=== PATIENT | female | born 1955 | race Caucasian/White ===

== ENCOUNTER 2017-06-05 10:39 | Outpatient (CLI) | payer BC ==
--- OUTSIDE RECORDS SUMMARY | 2017-06-05 12:16 | XMS | Clinical Summary ---
:1955 Author Organization [facility] Address [address] [place] [address] Phone Care Team Providers Name Role Phone , Primary Care Provider Unavailable Allergies Not on File Current Medications Not on file Active Problems Not on file Social History Tobacco Use Types Packs/Day Years Used Date Never Assessed Sex Assigned at Date Recorded Not on file Last Filed Vital Signs Not on file Plan of Treatment Not on file Results Not on filefrom Last 3 Months
--- NOTE | 2017-06-05 15:13 | MMO ---
[facility] SCREENING MAMMOGRAM: Date: 06/05/17 INDICATION: Annual exam. COMPARISON: Prior exam dated 09/04/15 and 07/18/14. FINDINGS: Interpretation of this exam was assisted with computer-aided detection. The breast parenchyma is heterogeneously dense, which limits the sensitivity of mammography. There ar e vascular appearing calcifications bilaterally. No new suspicious mass, cluster of microcalcificatio ns, or area of architectural distortion is evident. IMPRESSION: BIRADS 2: Benign Finding(s) Recommend routine annual mammographic screening. POS: JONATHAN
== END 2017-06-05 10:40 | disposition home or self-care (01) ==
LOC: MAMMO 10:39
PROVIDERS: ATTEND Family Medicine
DX: Z12.31 Encounter for screening mammogram for malignant neoplasm of breast (principal)
CPT/HCPCS: 77067; G0202

== ENCOUNTER 2017-11-16 12:53 | Outpatient (CLI) | payer BC ==
[~2017-11-16 12:53] MED LIST: Gadobenate Dimeglumine 529 MG/1 ML (20ML VIAL) ONE
== END 2017-11-16 12:54 | disposition home or self-care (01) ==
LOC: BICMRI 12:53
PROVIDERS: ATTEND Legal Medicine
DX: K83.0 Cholangitis (principal); K74.60 Unspecified cirrhosis of liver; D37.6 Neoplasm of uncertain behavior of liver, gallbladder and bile ducts
CPT/HCPCS: 74183; A9579

== ENCOUNTER 2017-12-07 13:57 | Inpatient (IN) | payer BC ==
[2017-12-07] MEDS ORDERED: Pantoprazole 40 MG VIAL ONE (14:35)
[2017-12-07 14:36] LABS: #Basophils 0.1 thou/uL (0.0-0.2); #Eosinphils 0.5 thou/uL (0.0-0.7); #Lymphocytes 1.3 thou/uL (1.20-3.40); #Monocytes 0.5 thou/uL (0.11-0.59); #Neutrophils 4.2 thou/uL (1.40-6.50); %Basophils 1.3 % (0.0-1.0); %Eosinophils 8.1 % (0.0-10.0); %Lymphocytes 20.3 % (21.0-51.0); %Monocytes 6.9 % (0.0-10.0); %Neutrophils 63.4 % (42.0-75.0); Hemoglobin 11.4 g/dL (12.0-16.0); Mean Corpuscular HGB CONC 33.2 g/dL (32.0-36.0); Mean Corpuscular Hemoglobin 31.2 pg (27.0-31.0); Mean Corpuscular Volume 94.2 fl (81.0-99.0); Mean Platelet Volume 8.3 fL (7.4-10.4); Platelet Count 175 thou/uL (130-400); RBC Distribution Width 14.2 % (11.5-14.5); Red Blood Cell (RBC) Count 3.65 mill/uL (4.20-5.40); White Blood Cell (WBC) Count 6.5 thou/uL (4.8-10.8)
[2017-12-07 14:44] LABS: INR-International Normal Ratio 1.3; PTT 35.8 SEC (22.9-36.1); Prothrombin Time 16.8 SEC (12.0-14.7)
[2017-12-07 14:59] LABS: ALT (SGPT) 25 U/L (8-55); AST (SGOT) 42 U/L (5-34); Albumin 2.4 g/dL (3.5-5.0); Alkaline Phosphatase 170 U/L (40-150); Anion Gap 11 mmol/L (10-20); BUN (Urea Nitrogen) 8 mg/dL (9.8-20.1); Bilirubin, Total 1.6 mg/dL (0.2-1.2); Calc. Creatinine Clearance 0 mL/min (70-130); Calcium 7.7 mg/dL (7.8-10.44); Carbon Dioxide 23 mmol/L (22-29); Chloride 103 mmol/L (98-107); Estimated GFR-MDRD 83; Globulin 2.7 g/dL (2.4-3.5); Glucose 195 mg/dL (70-105); Potassium 3.8 mmol/L (3.5-5.1); Protein, Total 5.1 g/dL (6.0-8.3); Sodium 133 mmol/L (136-145)
[2017-12-07] MEDS ORDERED: Sodium Chloride 0.9% 1,000 ML IV SCH (16:30)
[2017-12-07] MEDS ORDERED: Lidocaine 1% w/Epinephrine 1:100K 20 ML VIAL ONE (16:34)
[2017-12-07] MEDS ORDERED: Lidocaine 2% PF 100 mg/5 ml Syringe ONE (16:34)
[2017-12-07] MEDS ORDERED: Ondansetron ODT 4 MG TAB ONE (18:11)
--- NOTE | 2017-12-07 18:18 | HP ---
DATE OF ADMISSION: 12/07/2017 PRIMARY CARE PHYSICIAN: Lopez Nichole D.O. PRIMARY COLON SURGEON: Dr. Mcgee in [place]. PRIMARY LOCAL LIVER DOCTOR: Grady Wall M.D. TIME OF SERVICE: 1600. CHIEF COMPLAINT: GI bleed and syncope. HISTORY OF PRESENT ILLNESS: Ms. Mcclelland is a pleasant 61-year-old female with a history of ulcera tive colitis, status post subtotal colectomy 04/2017, approximately 16, who has had her ostomy bag. She was in normal state of health until this morning. This morning, she notes she had a few clots in her bag, but otherwise felt fine. She went to [employer] for food and while there had to go magaly k to the bathroom to empty her ostomy bag and noticed it was mostly medium red blood. When she got u p from the toilet, she syncopized and fell and struck the toilet and was subsequently brought to the emergency department for evaluation. Per reports, blood pressure was in the 90 systolic on arrival, but at one point it dropped to 82 syst olic. She was given 1 liter of IV fluid and 40 mg of IV Protonix. Blood pressure normalized in the low 100-118. Hemoglobin was normal on initial check and we were subsequently called for admission fo r GI bleed workup. On my arrival to the Emergency Department, she had filled up her ostomy bag with bloody again. The b ag was starting to lose its hold and they were in the process of removing it. Subsequently, her bloo d pressure dropped again to the 80s systolic. I recommended type and cross for 2 units and another 2 liter bolus of fluids. I placed orders for admission to the CCU. During that time or placing orders, the patient's ostomy bag was removed for cleaning. She was noted to have a pinpoint bleed spurting out from the left lateral aspect of her ostomy site. Pressure did seem to control initially, but did not stop it. Dr. Benjamin from General Surgery was initially consu lted, who recommended putting a suture through it and the ER resident placed TXA and bleeding is curr ently stopped. On my return to check on the patient's blood pressures in the 60 systolic. The two u nits of blood were ordered to be given stat and 2 additional liters of fluid. Dr. Quiñonez from [facility] was notified. Dr. Stephen Mcgee senior radiation therapist for Gastroenterology for Dr. Wall's tea m has been called. I left a message with him to call me back. The patient is otherwise currently st able. Denies any chest pain, difficulty breathing or nausea or vomiting. In passing, the mentioned that she has some liver disease that she was in high school as she was referred to a liver specialist in [place], whose name I cannot recall, currently stated that she has the liver and advanced alcoholic, though she does not drink a drop. INR on ER presentation was 1 .3 with elevated PT but normal PTT. PAST MEDICAL HISTORY: 1. Ulcerative colitis. 2. Iron deficiency anemia. 3. Chronic liver disease. PAST SURGICAL HISTORY: Include; 1. Large bowel resection and colostomy creation. 2. x3, remotely. 3. Hysterectomy. HOME MEDICATIONS: 1. Ursodiol 500 mg p.o. t.i.d. 2. Xifaxan 550 mg p.o. b.i.d. 3. Vitamin A daily. ALLERGIES: NKDA. FAMILY HISTORY: Negative for clotting or bleeding disorder. No immune dysfunction. SOCIAL HISTORY: Negative for habits x3. She is . Her daughter is a nurse tech here locally. REVIEW OF SYSTEMS: A 10-point review of systems was performed. All systems reviewed were negative f or all systems except as stated as per HPI. PHYSICAL EXAMINATION: VITAL SIGNS: Temperature 97.7, pulse 78, blood pressure initially 96/72 did drop to 82/51 and upon m y second return to the ER was 60s/40s. Respiratory rate 18, 100% on room air. GENERAL: She is awake. She is alert. She is oriented x3. She is a well-developed, well-nourished, white female, appears to be in no acute distress. HEENT: Normocephalic, atraumatic. Pupils equal, round, react to light bilaterally, she has left lat eral strabismus. She also has xanthelasma present. Mucous membranes are moist. She has no visible lesions or thrush. NECK: Supple, without lymphadenopathy, JVD, or thyromegaly. No carotid upstrokes without bruits. LUNGS: Clear. No wheezes, no rales or rhonchi. Good air movement and symmetrical chest excursion. CARDIOVASCULAR: Normal S1, S2. She is not tachycardic. She is regular. No audible murmurs. ABDOMEN: Soft. It is nontender. She has an ostomy present in the right lower quadrant. It is not extruded like normal ostomy, but is a rather flush currently. She has maceration around the junction site. Initially, there was a pinpoint continuous flows spurting bleed with a continuous flow from t he left lateral edge of her ostomy. After TXA, it was not able to be identified where it was coming from. EXTREMITIES: Shows no cyanosis, no clubbing with trace pedal edema. SKIN: Pale and cool. Capillary refill about 3 seconds. MUSCULOSKELETAL: Normal to inspection. Large joints appear normal. There is no active inflammation . Normal range of motion. No palpable effusions. NEUROLOGIC: Cranial nerves II-XII are grossly intact other than her strabismus. She has no focal ne urologic deficits, normal speech pattern. 5/5 strength in all 4 extremities. LABORATORY DATA: Sodium 133, potassium 3.8, chloride 103, bicarbonate 23, BUN 8, creatinine 0.72, gl ucose 195, and calcium of 9.7. Total bilirubin slightly elevated at 1.6, total protein low at 5.1, a lbumin low 2.4, alkaline phosphatase slightly elevated at 170, AST barely elevated at 42, ALT was nor mal. CBC showed a white count of 6.5, hemoglobin 11.4, hematocrit of 34.4, and platelet count is 195. INR is 1.3 with PTT of 16. Normal PTT. ASSESSMENT AND PLAN: 1. Acute lower gastrointestinal bleed. This may all be from her ostomy site, however, cannot rule o ut a bowel bleed. I have asked Dr. Stephen Mcgee with Gastroenterology to evaluate the patient and f roberto along. 2. Ostomy bleed: Place consult for General Surgery. If she ended up having a rebleed, she may need a revision of her ostomy site. I am fairly confident at this point she has lost at least 2 units of blood. I will continue to monitor closely. We will recheck her H and H after she gets some blood i n more fluids. 3. Suspected acute blood loss anemia present on admission: Patient syncopized prior to arrival befo re any fluids were given. Hemoglobin was 11. She has known iron deficiency anemia anyways. We will monitor H and H closely. 4. Ulcerative colitis, status post colectomy as above. 5. Chronic liver disease, unknown type: We will have Dr. Mcgee comment on that to use Xifaxan when she is able to take oral. We will admit the patient to the CCU overnight. Aggressive IV fluids and blood product administratio n. We will hold off on FFP now as her PTT is a barely elevated. INR is normal. If GI feels strongl y about giving it, and certainly we will get it ordered.
[2017-12-07] MEDS ORDERED: Ondansetron HCl/PF 4 MG/2 ML Vial IVP PRN ×2 (18:51→19:30)
[2017-12-07] MEDS ORDERED: Acetaminophen 325 MG TAB PO PRN ×2 (18:51→19:30)
[2017-12-07] MEDS ORDERED: Ondansetron ODT 4 MG TAB SL PRN (18:51)
[2017-12-07] MEDS ORDERED: Ondansetron ODT 4 MG TAB PO PRN (19:30)
[2017-12-07] MEDS: Sodium Chloride 0.9% 1,000 ML IV SCH (19:46)
[2017-12-07 20:00] LABS: Hemoglobin 11.3 g/dL (12.0-16.0)
[2017-12-07 20:33] VITALS: BP 104/61
[2017-12-07 20:56] VITALS: BMI 29.9
[2017-12-07] MEDS ORDERED: Famotidine/PF 20 mg/2ml Vial SLOW IVP SCH (21:00)
--- NOTE | 2017-12-07 21:52 | CON ---
DATE OF CONSULTATION: 12/08/2017 SERVICE: Pulmonary Medicine. REASON FOR CONSULTATION: Hemorrhagic shock. HISTORY OF PRESENT ILLNESS: Patient is a 61-year-old white female with past medical history significant for ulcerative colitis, status post colectomy. She has an ileostomy in place. She is in her usual state of health until this morning when she started having bright red blood in her ostomy bag. She does not remember exactly how many times she had to change it. She continued to empty it over and over again. Ultimately, she was feeling lousy but had plans to go to [facility]. At [facility], she was in her usual state of health when she started feeling lousy and went to the bathroom. She had a syncopal event there. She was subsequently brought to the emergency department. Her ostomy filled up over and over again with multiple bags full of blood. Ultimately, the bag was removed and a profusely hemorrhaging lesion was identified at the opening of the ostomy. Medication was placed there and pressure was held. The bleeding seems to have stopped for the time being, but the patient has lost a significant amount of blood. Blood pressures are marginal. She does not currently have any lightheadedness. She got a liter of fluid, and was also given a unit of blood so far. This is uncrossed matched blood. She will be getting another unit of blood here soon enough. She currently denies any current fevers, chills, nausea, vomiting, chest discomfort , or palpitations and is starting to feel a little bit better. She is already asking about whether or not she can go home. That being said by description, she has lost a significant amount of blood. PAST MEDICAL HISTORY: 1. Ulcerative colitis. 2. Rhinitis. PAST SURGICAL HISTORY: 1. Total colectomy with ileostomy formation. 2. Hysterectomy. 3. Left carpal tunnel surgery. 4. Right carpal tunnel surgery. FAMILY HISTORY: Noncontributory. SOCIAL HISTORY: Negative for tobacco, significant alcohol use, or illicit drug use. She has no exposure to chemicals, dust asbestos, or tuberculosis. ALLERGIES: No known drug allergies. MEDICATIONS: List of her inpatient medications were reviewed. No specific updates were made at this time. REVIEW OF SYSTEMS: General, head, ears, eyes, nose, throat, cardiovascular, respiratory, GI, , musculoskeletal, neurologic, and skin is negative except as mentioned in the HPI. PHYSICAL EXAMINATION: VITAL SIGNS: Afebrile, pulse 97, respirations 14, saturation 98% on room air. Blood pressure 96/55. HEENT: Normocephalic, atraumatic. Sclerae white. Conjunctivae pink. Oral nasal mucosa is moist without lesions. LUNGS: Excellent air entry. There is no prolonged expiratory phase, wheezing, rhonchi, or crackles. HEART: Normal rate, regular. ABDOMEN: Soft, nontender, nondistended. Bowel sounds are positive. MUSCULOSKELETAL: No cyanosis or clubbing. No pitting in the bilateral lower extremities. NEUROLOGIC: Grossly nonfocal. LABORATORY DATA: WBC 6.5, hemoglobin 11.4, platelets 175,000. INR 1.3. Basic metabolic profile is unremarkable. Calcium 7.7. AST 42, ALT 25, alkaline phosphatase 170. Liver function studies are otherwise unremarkable. ASSESSMENT: 1. Hemorrhagic shock. 2. Acute blood loss anemia. 3. Syncope secondary to blood loss. 4. Lower gastrointestinal bleed. 5. Ulcerative colitis. PLAN: At this point, the patient will need to be watched very closely. She had significant amount of blood loss, I am not certain how much blood she is going to need moving forward. She will certainly need hemoglobins q.6 hours. We will try to transfuse her to keep her above 7. If she has recurrent hemorrhagic shock; however, goal will not be a hemoglobin of 7, but rather hemodynamic stability. Agree with a liter of fluid that she has already received. She has got 1 unit of blood and one more is pending. After this, we will get her first hemoglobin assuming she continues not bleeding. I agree with watching the patient closely in the ICU. Pulmonary will continue to follow along for the time being. 70 minutes have been devoted to this patient in various activities. I personally reviewed all imaging studies and laboratory data noted within this document. For fifty percent of this time, I was interacting with the patient at the bedside or coordinating care with the care team. For the remainder of the time I was immediately available to the patient in the hospital unit. KOFI
--- NOTE | 2017-12-07 22:19 | CON ---
DATE OF CONSULTATION: 12/07/2017 CHIEF COMPLAINT: Blood from the ostomy. HISTORY OF PRESENT ILLNESS: Ms. Mcclelland is a 61-year-old woman with a history of ulcerative colit is and primary sclerosing cholangitis with cirrhosis who underwent colectomy previously after she was found to have biopsies with high-grade dysplasia on surveillance biopsies from her colon by Dr. Deepthi diaz. She has had an ileostomy since that time. J pouch has been on hold in light of her cirrhosis. She has also been followed by Hepatology in [place]. Today she around 10:00 this morning, she notice d red liquidy blood filling of her ostomy bag. She had this occur a few times. She went to [employer] and ate lunch. In the bathroom at the [employer], she went to empty her ileostomy bag, bu t while she is in the bathroom she passed out and fell to the floor. When she woke up, there is a gr oup of people around her. She passed. She had empty to her ileostomy bag at least 4 times after we filled up with blood. When the ileostomy bag was taken off, She saw spurting arterial type of bleedi ng from the junction between the skin and the colonic mucosa at the ileostomy site. The stool from t he ileostomy was actually yellow. She was somewhat hypotensive in the emergency room with blood pres sure in the 80s and she received fluid bolus and she is symptomatically improved after that. She has had no nausea or vomiting. She does report intermittent episodes of epigastric aching pain that rad iates through to her back. She had this for a couple of hours on Monday. She gets this pain recurre ntly every couple of weeks or so. She has had no bloody effluent from the ileostomy prior to this. She has had no change in the amount of stool output. She mostly has mushy to formed stools from the ileostomy. She states that Dr. Walker had started her on lactulose, but she did not get that pre scription filled. PAST MEDICAL HISTORY: 1. Ulcerative colitis, status post colectomy due to high-grade dysplasia on surveillance biopsies. 2. Primary sclerosing cholangitis with cirrhosis. 3. Hepatic encephalopathy. 4. Esophageal varices. The last EGD was 04/2016 that showed grade 2 varices in the lower esophagus without red signs. 5. She has a history of cholelithiasis. Her last MRI of the liver for hepatoma screening was in 2016, which did show evidence of gallstones. PAST SURGICAL HISTORY: Colectomy, colonoscopy, hysterectomy, carpal tunnel surgery. FAMILY HISTORY: Negative for GI malignancy or inflammatory bowel disease. SOCIAL HISTORY: No alcohol, tobacco, or drugs. ALLERGIES: No known drug allergies. MEDICATIONS AT HOME: Nadolol 20 mg daily, Irene Forte 500 mg 3 times a day, Xifaxan 550 mg twice zayda y, vitamin A, iron. REVIEW OF SYSTEMS: Negative x10 systems reviewed except as stated in the history of present illness. PHYSICAL EXAMINATION: GENERAL: She is in no acute distress. She is alert and oriented x3. HEENT: Eyes have no scleral icterus. NEUROLOGICAL: There is no asterixis. OROPHARYNX: Clear without lesions. NECK: No cervical or supraclavicular lymphadenopathy. LUNGS: Clear to auscultation bilaterally. HEART: Regular rate and rhythm. ABDOMEN: Soft and nontender, nondistended. Bowel sounds are present. She has ileostomy in the righ t upper quadrant. Digital exam of this reveals no melena or red blood in the ostomy. She is passing clear yellow bilious effluent from the ostomy. There is no evidence of active bleeding now. EXTREMITIES: No lower extremity edema. LABORATORY DATA: White blood cell count 6.5, hemoglobin of 11.4. She had a hemoglobin back in , which was 12.5, platelets 175. INR 1.3, creatinine 0.72. Bilirubin 1.6, AST 42, ALT 25, alkali ne phosphatase 170, albumin 2.4. IMPRESSION: 1. Acute bleed from the ileostomy site. Her family describes arterial type spurting bleeding from t he junction of the skin and the ileal mucosa at the ileostomy. The effluent from the ileostomy is a clear-yellow bilious and therefore, there is no bleeding proximal to this site. The bleeding is all around the ostomy site and has been evaluated by Dr. Benjamin. He has recommended evaluation by the [facility] wound care nurse. 2. History of cirrhosis secondary to primary sclerosing cholangitis. 3. History of ulcerative colitis, status post total colectomy and ileostomy. 4. History of esophageal varices grade 2 without red signs. 5. History of mild hepatic encephalopathy. 6. History of mild ascites noted by previous MRI from a year ago. 7. Cholelithiasis with intermittent epigastric pain that radiates to her back. 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 She is at risk for decomp ensation of her liver disease with any abdominal surgery. We will continue to follow this clinically for now and discuss with Hepatology as well. RECOMMENDATIONS: 1. She will be evaluated by the ostomy nurse/wound care nurse. 2. Check alpha-fetoprotein. 3. No further GI. Acute intervention is required at this time. I will sign off for now. Please ca ll if GI can be of assistance.
[2017-12-08] MEDS: Sodium Chloride 0.9% 1,000 ML IV SCH ×2 (00:47→05:36)
[2017-12-08 04:52] LABS: Anion Gap 6 mmol/L (10-20); BUN (Urea Nitrogen) 7 mg/dL (9.8-20.1); Calc. Creatinine Clearance 148 mL/min (70-130); Calcium 7.3 mg/dL (7.8-10.44); Carbon Dioxide 20 mmol/L (22-29); Chloride 115 mmol/L (98-107); Estimated GFR-MDRD Greater than 90; Glucose 89 mg/dL (70-105); Magnesium 1.4 mg/dL (1.6-2.6); Sodium 137 mmol/L (136-145)
[2017-12-08 05:08] LABS: #Basophils 0.1 thou/uL (0.0-0.2); #Eosinphils 0.5 thou/uL (0.0-0.7); #Lymphocytes 1.6 thou/uL (1.20-3.40); #Monocytes 0.5 thou/uL (0.11-0.59); #Neutrophils 3.1 thou/uL (1.40-6.50); %Eosinophils 9.3 % (0.0-10.0); %Lymphocytes 27.7 % (21.0-51.0); %Monocytes 8.6 % (0.0-10.0); %Neutrophils 53.4 % (42.0-75.0); Hemoglobin 10.5 g/dL (12.0-16.0); Mean Corpuscular HGB CONC 34.3 g/dL (32.0-36.0); Mean Corpuscular Hemoglobin 31.2 pg (27.0-31.0); Mean Corpuscular Volume 90.8 fl (81.0-99.0); Mean Platelet Volume 7.6 fL (7.4-10.4); PLT Morphology Comment Appears Decreased; Platelet Count 105 thou/uL (130-400); RBC Distribution Width 14.2 % (11.5-14.5); Red Blood Cell (RBC) Count 3.36 mill/uL (4.20-5.40); White Blood Cell (WBC) Count 5.7 thou/uL (4.8-10.8)
[2017-12-08] MEDS ORDERED: Famotidine 40 MG/4 ML VIAL SLOW IVP SCH (09:00)
[2017-12-08] MEDS ORDERED: Magnesium 2 GM/NS 0.9% 100 ML 2 GM in Premix Bag 1 BAG IVPB SCH (09:15)
[2017-12-08] MEDS ORDERED: Sodium Chloride 0.9% 1,000 ML IV SCH (09:15)
--- NOTE | 2017-12-08 10:39 | PRG ---
DATE OF SERVICE: 12/08/2017 SERVICE: Pulmonary Medicine INTERVAL HISTORY: The patient did fantastic overnight. She did not have any additional episodes of bleeding, but then when she got up to use the bathroom, she started oozing blood once again from the same spot. She denies any current fevers or chills. There has been no interval change to her condit ion. She has not been exsanguinating as she did previously. That being said, I think that close obs ervation in ICU is warranted given her history. PHYSICAL EXAMINATION: VITAL SIGNS: Afebrile, pulse 82, blood pressure 110/75, respirations 18, saturation 95% on room air. GENERAL: The patient is awake, alert, in no apparent distress. LUNGS: Excellent air entry. There is no prolonged expiratory phase, wheezing, rhonchi or crackles. HEART: Normal rate, regular. ABDOMEN: Soft, nontender, nondistended. Bowel sounds are positive. MUSCULOSKELETAL: No cyanosis or clubbing. There is no pitting in the bilateral lower extremities. NEUROLOGIC: Grossly nonfocal. LABORATORY DATA: Hemoglobin has settled down to 10.5. CBC is otherwise unremarkable. Her platelet count 105,000, which is dropping gently. INR 1.3. Chloride 115, bicarbonate 20, anion gap 6. Creat inine 0.51 and normal. Magnesium is 1.4. ASSESSMENT: 1. Hemorrhagic shock, resolved. 2. Acute blood loss anemia. 3. Syncope secondary to blood loss. 4. Lower gastrointestinal bleed at the ostomy site. 5. Ulcerative colitis. 6. Hypomagnesemia. DISCUSSION AND PLAN: I will provide the patient with magnesium. We will once again applied TXA to t he external site of the lesion as this previously was quite effective at controlling her bleeding. S he will remain in the ICU for the time being. We will have Wound Care come by and give her some osto my teaching. She will remain in the ICU for closer observation, given her recent history.
--- NOTE | 2017-12-08 12:36 | HP ---
Sheldon Mcclelland is a 61-year-old female referred by [facility], I believe, Dr Geovanna Wall to [place] for a colectomy secondary to polyposis and dysplasia. The patient hopes to have a J-pouch in the future. She has an ileostomy. The patient yesterday was shopping, experience d bleeding in her colostomy bag, became weak, presented to the emergency room, blood pressure in the 70s. Her ileostomy appliance removed and she had dermatitis secondary to ileostomy effluent and ther e was bleeding at the skin site adjacent to the ileostomy. Apparently, the patient was in the emerge ncy room under the care of the emergency room physician and admitted to the medical service and not h aving yet left to the emergency room. The patient had ongoing bleeding and the resident working in [facility] emergency room was called. I was consulted, but to tend to this, but I was not immediately availa ble. I asked the nurse to get the emergency room doctor there and in the emergency room, tend to the bleeding, put a stitch prior if necessary. By the time I arrived, the bleeding had ceased. The pat ient had mild dermatitis secondary to poor ileostomy care. The patient had not been educated on ileo stomy care when she left [place]. She had not been using protective skin barriers for the alkaline i leostomy effluent. There was no more bleeding. She did receive a unit of blood and her hemoglobin w as 11 on the blood check. I then told her that she would need to be educated by stoma therapist. Marlon presley had spoken to Maura Karthik over the phone but not yet physically visited her. The patient has stoma paste, but did not know how to use it. She has a powder, but does not know how to use it. She has protective barriers but does not know how to use it. She has been admitted by the medical service. The patient was observed in the ICU. She remained hemodynamically stable. This morning, her hemoglo bin is 10. This morning she had bleeding again, I was called. By the time I saw her, the bleeding s topped and they could not identify exactly where the bleeding was occurring around the colostomy edge . At this point, we have ordered a stoma therapy to see her and teach her ileostomy care. Dr. Yolanda diaz is covering the weekend. Please call if necessary. No further treatment is necessary at this yashira e. The patient hopes to have a J-pouch to reverse her ileostomy in the future in [place].
[2017-12-09 06:13] LABS: Anion Gap 7 mmol/L (10-20); BUN (Urea Nitrogen) 10 mg/dL (9.8-20.1); Calc. Creatinine Clearance 133 mL/min (70-130); Calcium 7.5 mg/dL (7.8-10.44); Carbon Dioxide 21 mmol/L (22-29); Chloride 111 mmol/L (98-107); Estimated GFR-MDRD Greater than 90; Glucose 88 mg/dL (70-105); Magnesium 1.8 mg/dL (1.6-2.6); Potassium 4.1 mmol/L (3.5-5.1); Sodium 135 mmol/L (136-145)
[2017-12-09 06:17] LABS: #Eosinphils 0.6 thou/uL (0.0-0.7); #Lymphocytes 1.1 thou/uL (1.20-3.40); #Monocytes 0.5 thou/uL (0.11-0.59); #Neutrophils 3.3 thou/uL (1.40-6.50); %Basophils 0.8 % (0.0-1.0); %Eosinophils 11.1 % (0.0-10.0); %Lymphocytes 20.4 % (21.0-51.0); %Monocytes 9.3 % (0.0-10.0); %Neutrophils 58.5 % (42.0-75.0); Hemoglobin 10.5 g/dL (12.0-16.0); Mean Corpuscular HGB CONC 33.9 g/dL (32.0-36.0); Mean Corpuscular Volume 91.5 fl (81.0-99.0); Platelet Count 107 thou/uL (130-400); RBC Distribution Width 14.4 % (11.5-14.5); White Blood Cell (WBC) Count 5.6 thou/uL (4.8-10.8)
[2017-12-09 08:34] VITALS: TEMP 98.1
[2017-12-09] MEDS ORDERED: Pantoprazole 40 MG GRANULES PACKET PO SCH (09:00)
--- NOTE | 2017-12-09 12:43 | PDOC.PN ---
- Subjective Encounter Start Date: 12/08/17 Encounter Start Time: 09:30 Pt did well overnigh,t no further bleeding, Hgb down 1.0 from our ER, after units PRBCs, total down of about 3 units. pt then stood up to go tot restroom afte ri left and started to rebleed. TXA to site, transfer to floor held, WCare to see regarding ostomy care No F/c, no N/V/D/C, no intraluminal bleed, all from stoma site All systems reviewed and neg x as above - Objective Resuscitation Status: Resuscitation Status FULL:Full Resuscitation MAR Reviewed: Yes Vital Signs & Weight: Vital Signs (12 hours) Temp Pulse Resp Pulse Ox 12/09/17 08:00 98.1 F 83 14 96 12/09/17 07:14 97 12/09/17 04:00 98.3 F Weight Admit Weight 174 lb Weight 174 lb 6.17 oz Most Recent Monitor Data Heart Rate from ECG 92 NIBP 133/85 NIBP BP-Mean 95 Respiration from ECG 16 SpO2 98 I&O: 12/08/17 12/09/17 12/10/17 06:59 06:59 06:59 Intake Total 2272 1080 Output Total 1550 2050 250 Balance 852 -320 250 Result Diagrams: 12/09/17 05:14 12/09/17 05:14 EKG Reviewed by me: Yes Phys Exam - Physical Examination Constitutional: NAD HEENT: PERRLA, moist MMs, sclera anicteric, oral pharynx no lesions Neck: no nodes, no JVD, supple, full ROM Respiratory: no wheezing, no rales, no rhonchi, clear to auscultation bilateral Cardiovascular: RRR, no significant murmur, no rub Gastrointestinal: soft, non-tender, no distention, positive bowel sounds parastoma lregion look better. applinace removed after rebleed, site c/d/i no spurting bleed like DOA Musculoskeletal: pulses present, edema present Neurological: non-focal, normal sensation, moves all 4 limbs Lymphatic: no nodes Psychiatric: normal affect, A&O x 3 Skin: no rash, normal turgor, cap refill <2 seconds Dx/Plan (1) Stomal bleeding Code(s): [id number] - Status: Acute Comment: stopped after TXA, rebled, reapply. local care to stoma site. follow in ICU overnight (2) Symptomatic anemia Code(s): D64.9 - ANEMIA, UNSPECIFIED Status: Acute Comment: due to bleeding (3) Hemorrhagic shock Code(s): R57.8 - OTHER SHOCK Status: Resolved Comment: BP normalized on IV fluids and fter 2 units PRBCs. (4) Ulcerative colitis Code(s): K51.90 - ULCERATIVE COLITIS, UNSPECIFIED, WITHOUT COMPLICATIONS Status: Chronic Qualifiers: Ulcerative colitis location: unspecified ulcerative colitis location Digestive disease complication type: without complication Qualified Code(s): K51.90 - Ulcerative colitis, unspecified, without complications Comment: s/p colectomy for polyposis (5) SUAREZ (nonalcoholic steatohepatitis) Code(s): K75.81 - NONALCOHOLIC STEATOHEPATITIS (SUAREZ) Status: Chronic Comment: followe miller [facility]. INR 1.3 - Plan cont current plan of care, plan discussed w/ family, DVT proph w/SCDs * .
--- NOTE | 2017-12-09 21:10 | PRG ---
DATE OF SERVICE: 12/09/2017 SUBJECTIVE: Ms. Mcclelland did well overnight. She has had no recurrent ostomy bleeding. Her ostom y nurse told her she was trying to get her some different size ostomy donuts. OBJECTIVE: LUNGS: Clear. CARDIOVASCULAR: Regular rhythm. ABDOMEN: Soft and nontender. IMPRESSION: From her ileostomy site appears to have stabilized with topical intervention. PLAN: [place]
== END 2017-12-09 12:45 | disposition home or self-care (01) | DRG 393 ==
LOC: ERS 13:57 → CCU 16:17
PROVIDERS: ADMIT Internal Medicine Infectious Disease; ATTEND Internal Medicine Infectious Disease
PROC: 30233N1 Transfusion of Nonautologous Red Blood Cells into Peripheral Vein, Percutaneous Approach (ICD-10-PCS; principal; 2017-12-07)
DX: K94.11 Enterostomy hemorrhage (principal); R57.8 Other shock; D62 Acute posthemorrhagic anemia; K51.90 Ulcerative colitis, unspecified, without complications; K83.0 Cholangitis; I85.10 Secondary esophageal varices without bleeding; R18.8 Other ascites; K74.60 Unspecified cirrhosis of liver; K75.81 Nonalcoholic steatohepatitis (NASH); Y83.8 Other surgical procedures as the cause of abnormal reaction of the patient, or of later complication, without mention of misadventure at the time of the procedure; D50.9 Iron deficiency anemia, unspecified; E83.42 Hypomagnesemia; Z90.49 Acquired absence of other specified parts of digestive tract; Z90.710 Acquired absence of both cervix and uterus
CPT/HCPCS: 36415; 36430; 80048; 80053; 82105; 83735; 85025; 85610; 85730; 86850; 86870; 86900; 86901; 86922; 90471; 90732; 93005; 94760; 96361; 96374; C9113; G0009; J2001; J3475; P9016; Q0162; S0028

== ENCOUNTER 2017-12-13 13:56 | Outpatient (CLI) | payer BC | END 2017-12-13 13:57 | disposition home or self-care (01) | LOC: WCC 13:56 | PROVIDERS: ATTEND Family Medicine | DX: K94.11 Enterostomy hemorrhage (principal) | CPT/HCPCS: 99211; G0463 ==

== ENCOUNTER 2017-12-18 15:56 | Outpatient (CLI) | payer BC | END 2017-12-18 15:57 | disposition home or self-care (01) | LOC: BICRAD 15:56 | PROVIDERS: ATTEND Internal Medicine Gastroenterology | DX: R05 Cough (principal); K74.60 Unspecified cirrhosis of liver; I85.10 Secondary esophageal varices without bleeding; K72.90 Hepatic failure, unspecified without coma; K83.0 Cholangitis; Z90.49 Acquired absence of other specified parts of digestive tract | CPT/HCPCS: 71046 ==

== ENCOUNTER 2018-02-25 07:50 | Inpatient (IN) | payer BC ==
[2018-02-25 09:00] LABS: #Basophils 0.1 thou/uL (0.0-0.2); #Eosinphils 0.2 thou/uL (0.0-0.7); #Lymphocytes 2.2 thou/uL (1.20-3.40); #Monocytes 0.9 thou/uL (0.11-0.59); #Neutrophils 6.9 thou/uL (1.40-6.50); %Basophils 0.6 % (0.0-1.0); %Lymphocytes 21.6 % (21.0-51.0); %Monocytes 8.7 % (0.0-10.0); %Neutrophils 67.1 % (42.0-75.0); Hemoglobin 14.6 g/dL (12.0-16.0); Mean Corpuscular HGB CONC 33.2 g/dL (32.0-36.0); Mean Corpuscular Hemoglobin 29.9 pg (27.0-31.0); Mean Corpuscular Volume 89.9 fL (78.0-98.0); Mean Platelet Volume 7.7 fL (7.4-10.4); Platelet Count 190 thou/uL (130-400); RBC Distribution Width 14.3 % (11.5-14.5); Red Blood Cell (RBC) Count 4.89 mill/uL (4.20-5.40); White Blood Cell (WBC) Count 10.2 thou/uL (4.8-10.8)
[2018-02-25] MEDS ORDERED: Octreotide Acetate 1,250 MCG in Sodium Chloride 0.9% 250 ML 250 ML IVPB SCH ×2 (09:00→19:45)
[2018-02-25 09:13] LABS: ALT (SGPT) 27 U/L (8-55); AST (SGOT) 31 U/L (5-34); Albumin 3.2 g/dL (3.5-5.0); Alkaline Phosphatase 159 U/L (40-150); Anion Gap 10 mmol/L (10-20); BUN (Urea Nitrogen) 8 mg/dL (9.8-20.1); Bilirubin, Total 1.7 mg/dL (0.2-1.2); Calc. Creatinine Clearance 0 mL/min (70-130); Calcium 8.7 mg/dL (7.8-10.44); Carbon Dioxide 26 mmol/L (22-29); Chloride 108 mmol/L (98-107); Estimated GFR-MDRD 90; Globulin 3.9 g/dL (2.4-3.5); Glucose 92 mg/dL (70-105); Potassium 3.9 mmol/L (3.5-5.1); Protein, Total 7.1 g/dL (6.0-8.3); Sodium 140 mmol/L (136-145)
[2018-02-25] MEDS ORDERED: Octreotide Acetate 50 MCG/ML AMP ONE (09:41)
[2018-02-25 09:51] LABS: INR-International Normal Ratio 1.3; Prothrombin Time 16.6 SEC (12.0-14.7)
[2018-02-25] MEDS ORDERED: Ondansetron ODT 4 MG TAB PO PRN (11:30)
[2018-02-25] MEDS ORDERED: traMADol HCl 50 MG TAB PO PRN (11:30)
[2018-02-25] MEDS ORDERED: Acetaminophen 325 MG TAB PO PRN (11:30)
[2018-02-25 13:30] VITALS: BMI 27.4
[2018-02-25 15:11] LABS: Hemoglobin 14.2 g/dL (12.0-16.0)
--- NOTE | 2018-02-25 17:32 | HP ---
PRIMARY CARE PHYSICIAN: Dr. Lionel Nichole. CHIEF COMPLAINT: Bleeding around the ostomy site. HISTORY OF PRESENT ILLNESS: Ms. Mcclelland is a very pleasant 62-year-old female that has a history of ulcerative colitis. She also has a history of nonalcoholic cirrhosis. She was in her usual state of health until she noticed some bleeding from around her ostomy site. This has happened to her bef ore and she was hospitalized back in November as a result of this. It was felt to be due to some variceal bleeding as a result of her liver disease. The bleeding was controlled and she also sees a liver sp ecialist in [place], Dr. Delmar Walker. She noticed that she started having bleeding once again from around the ostomy site. It was fairly for severe bleeding. She said they noticed that there we re some clots. She does not feel that it is coming from inside of the ostomy, but from around the os ariadne site. She called her liver specialist and was told to come to the emergency room and she is serafin ng placed in observation for this. The patient denies any fevers or chills. No abdominal pain. She says that her stool is normal and light brown in color. She has not felt dizzy or lightheaded and s he says her systolic blood pressure is usually in the 90s. Also, she recently was stung by a wasp dona d is currently on prednisone as well as an antibiotic that she is taking currently. REVIEW OF SYSTEMS: All systems were reviewed and negative except for that mentioned in the history o f present illness. PAST MEDICAL HISTORY: Significant for ulcerative colitis, iron deficiency anemia, cirrhosis, which i s nonalcoholic. PAST SURGICAL HISTORY: She has had a partial colectomy, x3 and hysterectomy. ALLERGIES: No known drug allergies. SOCIAL HISTORY: She is . She is a nonsmoker, nondrinker. FULL CODE. FAMILY HISTORY: Significant for Alzheimer's disease, hypertension, and high cholesterol. CURRENT MEDICATIONS: Include ursodiol 500 mg 3 times a day, vitamin A 10,000 international units 2 t ablets daily, rifaximin 550 mg twice a day, nadolol 20 mg daily, pantoprazole 40 mg daily, prednisone 50 mg daily. She has 3 more left and cephalexin 500 mg twice a day. PHYSICAL EXAMINATION: GENERAL: She is alert and oriented. She appears to be in no acute distress. VITAL SIGNS: Blood pressure was 90/50, heart rate is in the low 50s to 40s, respiratory rate is 16. She is afebrile. HEENT: Pupils are equal, round, and reactive. Extraocular muscles are intact. Her sclerae are anic teric. Throat, no erythema, no exudates. NECK: No adenopathy, no bruits. LUNGS: Clear. There is no wheezing or rales. CARDIOVASCULAR: She had a normal S1, S2. I did not appreciate an S3 or S4. No murmurs, clicks or r ubs. ABDOMEN: Slightly distended. There was no tenderness. There is some denuded skin around the ostomy and when it is fairly bit red and a bit oozing, she has maria luisa colored stool coming from the ostomy. There is no melena. LOWER EXTREMITIES: There is no edema. NEUROLOGIC: Neurologically, the exam is nonfocal. Muscle strength is intact. SKIN AND INTEGUMENT: No skin changes. No rash. LABORATORY DATA: CBC: White blood cell count 10.2, hemoglobin 14.6, hematocrit is 44, platelet coun t is 190. INR is 1.3. Sodium 140, potassium 3.9, chloride is 108, CO2 is 26, BUN of 8, creatinine 0 .67, glucose is 92, total bilirubin is 1.7, AST and ALT are normal, alkaline phosphatase is 159. ASSESSMENT AND PLAN: This is a 62-year-old female that presents with bleeding from around the ostomy site. This has happened to her before. Her physicians, Dr. Wall and Dr. Walker are aware of this situation. Dr. Wall has been consulted from the ER and would like her to be placed in observa tion and placed on an octreotide drip. We will continue to monitor her hemoglobin and hematocrit, av oid any anticoagulation and we will restart her on her usual home medications. Recent cellulitis fro m an insect bite. We will continue her medications including the prednisone and Keflex for this and further treatment will be as per Gastroenterology.
[2018-02-25] MEDS ORDERED: Rifaximin 550 MG TAB PO SCH (21:00)
[2018-02-25] MEDS: Cephalexin 250 MG CAP PO SCH (21:18)
[2018-02-25] MEDS: Vitamin A 10,000 UNITS CAP PO SCH (21:18)
--- NOTE | 2018-02-25 21:18 | CON ---
DATE OF CONSULTATION: 02/25/2018 REASON FOR CONSULTATION: Bleeding from ostomy. HISTORY OF PRESENT ILLNESS: Ms. Mcclelland is a very pleasant 62-year-old who I have taken care of f or quite some time now. She had a subtotal colectomy in the last couple of years for high grade dysp lasia in association with her ulcerative colitis. She did well from that surgery, she has got a righ t lower quadrant ostomy now. 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 Delmar Walker in [place] for several years ago that he has maintained her on ursodiol. More recently, she came to the emergency room and was admitted to the [facility] in November of this year. At that time, she had developed bleeding in her ostomy bag while at [facility] and was until she passed out before that, she came to the hospital, then her hemoglobin sin s dropped about 4 grams dropped to low I think around 6 or 7 and received a couple units of blood and stabilized with hemoglobin about 10. Her platelets were 105, often around 130 to 135. Her white co unt was normal. Her INR was normal at that time. I had a concern that this could be peristomal vari kat, but the report from the surgeon and the ER doctor was the bleeding is pulsatile in nature and [facility] surgeon felt this was related to erosions from the colostomy. Just before that, she had an MRI on 11/16/2017 for hepatoma screening and PSC screening that showed small amount of ascites and gallbladd er stones and MAC macronodular cirrhosis. She has had intermittent alpha fetoprotein. His last one being 2.3 in 12/09/2017. The patient recently saw her pulp mill operator, Dr. Walker who was concerned of bleeding was peristomal and he asked if we get her cardiac evaluation here, so she could get eval uated for TIPS in [place] in the next couple of weeks. However, this morning, the emergency room tatyana led me and noted that she come to the emergency room with bleeding. She states that the bleeding sta rted at home and it was just like last time she laid down for about 15 minutes and would not would go away she came in. Here in the emergency room, emergency room physician called me and noted that the bleeding was actually a continuous stream raising about 4 cm in the ostomy at the edge and was not p ulsatile nature. Her vital signs are stable. They held pressure octreotide and the bleeding h as now stopped. She denies any pain. She states that the only time she had bleeding since November. She has known esophageal varices grade II noted within the last year. These were not banded, was nonble eding. She has been on nadolol for primary prophylaxis. PAST MEDICAL HISTORY: 1. PSC with cirrhosis. 2. Subtotal colectomy for high grade dysplasia in setting of ulcerative colitis. 3. Hepatic encephalopathy, mild. 4. Esophageal varices grade II. 5. History of cholelithiasis. 6. Recent hepatoma screening negative. PAST SURGICAL HISTORY: Colectomy, colonoscopies, hysterectomy, carpal tunnel surgery. FAMILY HISTORY: Negative for malignancy or GI inflammatory bowel disease. SOCIAL HISTORY: Negative for alcohol, drugs, tobacco. Her son and daughter are here. ALLERGIES: None known. MEDICATIONS AT HOME: t.i.d., nadolol 20 mg daily, Xifaxan 550 b.i.d., and vitamin A. PHYSICAL EXAMINATION: VITAL SIGNS: Temperature is 98.6, pulse 63, blood pressure 97/67. GENERAL: She is resting comfortably. She is anicteric. She is alert and oriented to place and time . Conjunctiva and sclerae are clear, pink. HEART: Regular rate and rhythm. ABDOMEN: Soft, nontender. The ostomy site is little bit of bluish tinge around it, but no overt lar ge varices were seen there. There is no bleeding site was identified. There was no visible vessel a t the skin. EXTREMITIES: No clubbing, cyanosis or edema. There is no asterixis. LABORATORY DATA: White count on admission, sodium 140, potassium 3.9, bicarbonate 108, BUN and creat inine are 8 and 0.67, bilirubin 1.7, alkaline phosphatase 159. AST and ALT are 31 and 27, albumin 3. 2, total protein 7.0. INR 1.3, hemoglobin is 14, platelets 190 and white count 10.2. ASSESSMENT: Recurrent bleeding in her ostomy. Last time, this was described as a pulsatile blood ty pe bleed. I did not see it, I was not there, but it was seen by the surgeon and the ER doctor and th ey felt this was peristomal bleed from probably an erosion into a small arterial feeder. However, th is time the bleeding definitely was a discontinuous and raised up from the ostomy site consistent wit h bleeding from portal hypertension, a peristomal varix, there was also a little bit of blue discolor ation around the stoma, but there are no overt large varices I see at this time. I talked with Dr. Last Walker who actually I talked to last week about her and we decided it is not really viable to try to let her go home again and this is reoccurring so we are going to plan on transferring her [facility] in [place] where they are already going to plan to proceed with a TIPS that is p er her pulp mill operator of many years have been that is where she had her surgery for her colectomy. We will monitor H&H, keep her octreotide 100 mcg per hour and her home medications. If there is further bleeding, I have asked her to notify the nurse so we can apply tamponade with pressure. She is tawanda g to put her ostomy bag back on, but I have asked her to keep that away from the specific small bowel tissue and we have placed in a call from referral center to see if we can get a transfer going for t he precision structural metal fitter as Dr. Walker asked to be transferred tomorrow to complete her pre TIPS workup a nd get the TIPS complete and I would keep her on octreotide. We will start her on liquid diet.
[2018-02-25] MEDS: Rifaximin 550 MG TAB PO SCH (21:19)
[2018-02-25 23:01] LABS: Hemoglobin 12.1 g/dL (12.0-16.0)
[2018-02-26 04:36] LABS: Anion Gap 10 mmol/L (10-20); BUN (Urea Nitrogen) 13 mg/dL (9.8-20.1); Calc. Creatinine Clearance 109 mL/min (70-130); Carbon Dioxide 25 mmol/L (22-29); Chloride 104 mmol/L (98-107); Estimated GFR-MDRD Greater than 90; Glucose 82 mg/dL (70-105); Potassium 4.4 mmol/L (3.5-5.1); Sodium 135 mmol/L (136-145)
[2018-02-26 04:51] LABS: #Eosinphils 0.4 thou/uL (0.0-0.7); #Lymphocytes 1.5 thou/uL (1.20-3.40); #Monocytes 0.9 thou/uL (0.11-0.59); %Basophils 0.6 % (0.0-1.0); %Eosinophils 5.7 % (0.0-10.0); %Lymphocytes 22.7 % (21.0-51.0); %Monocytes 12.6 % (0.0-10.0); %Neutrophils 58.4 % (42.0-75.0); Hemoglobin 11.6 g/dL (12.0-16.0); Mean Corpuscular HGB CONC 34.6 g/dL (32.0-36.0); Mean Corpuscular Volume 89.6 fL (78.0-98.0); Mean Platelet Volume 7.6 fL (7.4-10.4); PLT Morphology Comment Appears Decreased; Platelet Count 103 thou/uL (130-400); RBC Distribution Width 14.2 % (11.5-14.5); Red Blood Cell (RBC) Count 3.75 mill/uL (4.20-5.40); White Blood Cell (WBC) Count 6.8 thou/uL (4.8-10.8)
[2018-02-26] MEDS ORDERED: predniSONE 50 MG TAB PO SCH (08:00)
[2018-02-26] MEDS: Rifaximin 550 MG TAB PO SCH (09:03)
[2018-02-26] MEDS: Vitamin A 10,000 UNITS CAP PO SCH (09:03)
[2018-02-26] MEDS: Cephalexin 250 MG CAP PO SCH (09:03)
--- NOTE | 2018-02-26 12:08 | PDOC.PN ---
- Subjective Encounter Start Date: 02/26/18 Encounter Start Time: 12:07 Ms. Mcclelland was seen today in follow-up of bleeding around her stroma. She does not have any complaints. She says the bleeding has stopped. - Objective Resuscitation Status: Resuscitation Status FULL:Full Resuscitation MAR Reviewed: Yes Vital Signs & Weight: Vital Signs (12 hours) Temp Pulse Resp BP Pulse Ox 02/26/18 08:15 98.7 F 68 16 96 02/26/18 07:30 98.7 F 68 16 90/63 96 Weight Weight 160 lb I&O: 02/25/18 02/26/18 02/27/18 06:59 06:59 06:59 Intake Total 120 Balance 120 Result Diagrams: 02/26/18 03:53 02/26/18 03:53 Phys Exam - Physical Examination HEENT: PERRLA Respiratory: no wheezing, no rales, no rhonchi, clear to auscultation bilateral Cardiovascular: RRR, no significant murmur, no rub Gastrointestinal: soft, non-tender, positive bowel sounds + Mild distention Musculoskeletal: no edema no lower extremity edema Dx/Plan (1) Stomal bleeding Code(s): [id number] - Status: Acute Comment: stopped after TXA, rebled, reapply. local care to stoma site. follow in ICU overnight (2) SUAREZ (nonalcoholic steatohepatitis) Code(s): K75.81 - NONALCOHOLIC STEATOHEPATITIS (SUAREZ) Status: Chronic Comment: followe [place]. INR 1.3 (3) Ulcerative colitis Code(s): K51.90 - ULCERATIVE COLITIS, UNSPECIFIED, WITHOUT COMPLICATIONS Status: Chronic Qualifiers: Ulcerative colitis location: unspecified ulcerative colitis location Digestive disease complication type: without complication Qualified Code(s): K51.90 - Ulcerative colitis, unspecified, without complications Comment: s/p colectomy for polyposis - Plan * Stomal bleeding- improved, she did have a drop in her H&H, but she did not require transfusion. * Discussed with Dr. Wall, who spoke with Dr. Fazal Smith- she will be transferred to [facility] in [facility] for possible TIPS procedure
[2018-02-26 12:40] VITALS: BP 111/59; TEMP 98.5
--- NOTE | 2018-02-26 15:59 | PRG ---
DATE OF SERVICE: 02/26/2018 SUBJECTIVE: Ms. Mcclelland has had no bleeding overnight. She has been tolerating a full liquid t. She does not want to eat more because she does not want a lot of stuff to come out of her ostomy and irritate things. OBJECTIVE: VITAL SIGNS: The patient has been afebrile and has been so over the past 24 hours, pulse is 80-90, s ystolic blood pressures 110s to 120s. GENERAL: She is alert and oriented. She is in no distress. She is nonicteric. ABDOMEN: Soft, nontender. Ostomy has a little bit of stool in it with no bleeding. EXTREMITIES: Revealed no clubbing, cyanosis or edema. NEUROLOGIC: No asterixis. ASSESSMENT: 1. 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 2. Known portal hypertension with grade II esophageal varices, no history of bleeding in the past. 3. Recurrent bleeding in her ostomy site and her readiness paraprofessional in [place] is concerned about parastom al varices and bleeding characteristic of that nonpulsatile, high pressure bleeding at the ostomy con sistent with variceal bleeding in this area. 4. No active bleeding since admission, hemodynamically stable on octreotide. PLAN: Transfer to [place] on octreotide. The [facility] where her Electrologist is and wants to evaluate her as an inpatient now for TIPS placement in light of recurrent bleeding.
== END 2018-02-26 13:05 | disposition short-term general hospital (02) | DRG 394 ==
LOC: ERS 07:50 → SURG A 09:35
PROVIDERS: ADMIT Internal Medicine; ATTEND Internal Medicine
DX: K94.01 Colostomy hemorrhage (principal); K76.6 Portal hypertension; K51.90 Ulcerative colitis, unspecified, without complications; K74.5 Biliary cirrhosis, unspecified; Y83.9 Surgical procedure, unspecified as the cause of abnormal reaction of the patient, or of later complication, without mention of misadventure at the time of the procedure; Y82.8 Other medical devices associated with adverse incidents; Y92.9 Unspecified place or not applicable; K75.81 Nonalcoholic steatohepatitis (NASH); Z82.49 Family history of ischemic heart disease and other diseases of the circulatory system
CPT/HCPCS: 36415; 80048; 80053; 85025; 85610; 86850; 86900; 86901; 86922; 93005; 96365; 96376; J2354; J7050

== ENCOUNTER 2018-03-22 15:05 | Outpatient (CLI) | payer BC | END 2018-03-22 15:06 | disposition home or self-care (01) | LOC: WCC 15:05 | PROVIDERS: ATTEND Family Medicine | DX: K94.10 Enterostomy complication, unspecified (principal) ==

== ENCOUNTER 2018-06-18 07:26 | Outpatient (CLI) | payer BC ==
--- NOTE | 2018-06-18 09:15 | ULT ---
ABDOMINAL UTRASOUND: INDICATION: Three-month followups from a TIPS procedure. TECHNIQUE: Perez scale, color Doppler, and spectral Doppler images were obtained of the abdomen. Duplex evaluatio n was performed of the hepatic vasculature and TIPS shunt. FINDINGS: The liver is diffusely heterogeneous and nodular in contour consistent with changes of cirrhosis. Th e patient's known focal hepatic lesions are difficult to evaluate due to overlying bowel gas and the coarse echotexture of the liver. The gallbladder is moderately dilated and tortuous with mild gallbladder wall thickening and perichol ecystic fluid. No sonographic Schmidt's sign is reported. The common bile duct measured 4.2 mm. There is appropriate hepatopetal flow seen within the portal vein as well as within the TIPS shunt. No definite high-grade velocity changes are seen within the TIPS to suggest stenosis or occlusion. A ppropriate flow within the right and main hepatic vein. The left hepatic vein is poorly detailed. T here is appropriate flow within the SMV. Appropriate flow within the hepatic artery. Appropriate fl ow within the aorta and IVC. There is appropriate flow within the splenic artery and vein. Visualized aspects of the pancreatic head were unremarkable. The visualized aorta and IVC were unrem arkable. The right kidney measured 11.6 cm in length and the left measured 12.9 cm. The spleen measures 13.2 cm. IMPRESSION: 1. Cirrhotic morphology of the liver. 2. Appropriate hepatopetal flow. 3. Patent transvenous intrahepatic portosystemic shunt stent. 4. The gallbladder is moderately distended. Mild gallbladder wall thickening and pericholecystic ed aixa and adjacent free fluid, likely related to mild ascites. There is no overt sonographic evidence to suggest acute cholecystitis. POS: OFF
== END 2018-06-18 07:27 | disposition home or self-care (01) ==
LOC: BICULT 07:26
PROVIDERS: ATTEND Legal Medicine
DX: Z48.815 Encounter for surgical aftercare following surgery on the digestive system (principal); K74.60 Unspecified cirrhosis of liver; K82.8 Other specified diseases of gallbladder; Z96.89 Presence of other specified functional implants
CPT/HCPCS: 76700

== ENCOUNTER 2018-06-26 13:57 | Outpatient (CLI) | payer BC | END 2018-06-26 13:58 | disposition home or self-care (01) | LOC: BICMAMMO 13:57 | PROVIDERS: ATTEND Family Medicine | DX: Z12.31 Encounter for screening mammogram for malignant neoplasm of breast (principal) | CPT/HCPCS: 77063; 77067 ==

== ENCOUNTER 2018-07-20 12:47 | Outpatient (CLI) | payer BC ==
[2018-07-20] MEDS ORDERED: Sodium Chloride 0.9% 15 ML NEB ONE (14:05)
== END 2018-07-20 12:48 | disposition home or self-care (01) ==
LOC: WCC 12:47
PROVIDERS: ATTEND Family Medicine
DX: K94.10 Enterostomy complication, unspecified (principal)
CPT/HCPCS: 99211; A4218; G0463

== ENCOUNTER 2018-11-06 08:40 | Outpatient (CLI) | payer BC ==
--- NOTE | 2018-11-06 11:06 | MRI ---
MRI abdomen with and without IV contrast: INDICATION: History of cirrhosis Contrast: 15 cc MultiHance Comparison: Prior MR of the abdomen with and without contrast dated December 02, 2009 FINDINGS: When compared to the prior MR examination there is worsening cirrhotic morphology of the liver. A juan ority of the right hepatic lobe hemangiomas have intervally fibrosed. There is a residual suspected h emangioma within the lateral aspect of the right hepatic lobe on image 124 series 10 measuring 6 cm. An additional 2 cm hemangioma remains within the hepatic dome. There is a 1.1 cm cyst within the medi al left hepatic lobe. Majority of the heterogeneous enhancement seen along the posterior, posterior l ateral and lateral aspect of the right hepatic lobe likely related to the prominent hemangioma is see n within the peripheral margin of the right hepatic lobe on the comparison MR examination. No definit e suspicious arterial enhancement is seen to suggest the presence of malignancy. The TIPS shunt is oc cluded. Its distal and mid segment reveals no internal contrast enhancement. There is some retrograde opacification from the IVC into the more proximal aspect of the stent. The spleen is enlarged measur ing 14.7 cm. The kidneys, adrenal glands and pancreas appear within normal limits. No pathologically enlarged lymph nodes are evident. There is a moderately to prominent hydropic gallbladder which is si milar to an ultrasound performed at [facility] diagnostic imaging on 06/18/2018. No bone marrow signal abnor mality is evident. IMPRESSION: 1. Worsening cirrhosis with findings of portal hypertension. The previously seen prominent hemangioma within the right hepatic lobe have undergone some interval fibrosis and decrease in size. There is a suspected residual hemangioma within the right peripheral aspect of the pedicle measuring 6 cm. An a dditional 2 cm right hepatic dome hemangioma persists. There is a persistent 1.1 cm cyst within the l eft hepatic lobe. No definite suspicious lesion consistent with malignancy is evident. 2. Occluded TIPS shunt catheter. Transcribed Date/Time: 11/06/2018 11:28 AM
[2018-11-06] MEDS ORDERED: Gadobenate Dimeglumine 529 MG/1 ML (20ML VIAL) ONE (16:58)
== END 2018-11-06 08:41 | disposition home or self-care (01) ==
LOC: BICMRI 08:40
PROVIDERS: ATTEND Legal Medicine
DX: K74.60 Unspecified cirrhosis of liver (principal); K83.01 Primary sclerosing cholangitis; K76.6 Portal hypertension; D18.03 Hemangioma of intra-abdominal structures; K76.89 Other specified diseases of liver; T82.598A Other mechanical complication of other cardiac and vascular devices and implants, initial encounter
CPT/HCPCS: 74183; 82565

== ENCOUNTER 2019-01-05 07:55 | Observation (INO) | payer BC ==
[2019-01-05 08:22] LABS: #Basophils 0.1 thou/uL (0.0-0.2); #Eosinphils 0.2 thou/uL (0.0-0.7); #Monocytes 0.7 thou/uL (0.11-0.59); #Neutrophils 5.2 thou/uL (1.40-6.50); %Basophils 0.9 % (0.0-1.0); %Eosinophils 2.4 % (0.0-10.0); %Monocytes 10.2 % (0.0-10.0); %Neutrophils 72.6 % (42.0-75.0); Hemoglobin 14.3 g/dL (12.0-16.0); Mean Corpuscular HGB CONC 33.9 g/dL (32.0-36.0); Mean Corpuscular Hemoglobin 30.4 pg (27.0-31.0); Mean Corpuscular Volume 89.5 fL (78.0-98.0); Mean Platelet Volume 9.1 fL (7.4-10.4); Platelet Count 160 thou/uL (130-400); Red Blood Cell (RBC) Count 4.71 mill/uL (4.20-5.40); White Blood Cell (WBC) Count 7.2 thou/uL (4.8-10.8)
[2019-01-05 08:47] LABS: ALT (SGPT) 49 U/L (8-55); AST (SGOT) 89 U/L (5-34); Albumin 3.3 g/dL (3.4-4.8); Alkaline Phosphatase 232 U/L (40-150); Anion Gap 13 mmol/L (10-20); BUN (Urea Nitrogen) 7 mg/dL (9.8-20.1); Bilirubin, Total 11.3 mg/dL (0.2-1.2); Calc. Creatinine Clearance 0 mL/min (70-130); Calcium 9.2 mg/dL (7.8-10.44); Carbon Dioxide 26 mmol/L (23-31); Chloride 102 mmol/L (98-107); Estimated GFR-MDRD 86; Globulin 3.9 g/dL (2.4-3.5); Glucose 82 mg/dL (80-115); Lipase 39 U/L (8-78); Potassium 3.6 mmol/L (3.5-5.1); Protein, Total 7.2 g/dL (6.0-8.3); Sodium 137 mmol/L (136-145)
[2019-01-05] MEDS ORDERED: Lidocaine Viscous Sol 2% 15 ml UD Cup ONE (09:07)
[2019-01-05] MEDS ORDERED: Mag-Al 1200 mg/1200 mg/30 ML UDCUP ONE (09:07)
[2019-01-05] MEDS ORDERED: ISOVUE-370 76%-LOCM 1 ML ONE (09:38)
[2019-01-05 09:56] LABS: Bilirubin Large (Negative); Blood, Urine Negative (Negative); Clarity CLEAR (Clear); Glucose, Urine (Dipstick) Negative (Negative); Leukocyte Negative (Negative); Nitrite Negative (Negative); Protein, Urine (Dipstick) Negative (Neg-Trace); Specific Gravity, Urine 1.028 (1.002-1.036); Urobilinogen 0.2 mg/dL (0.2-1.0)
--- NOTE | 2019-01-05 10:04 | CT ---
EXAM: Abdomen and pelvic CT scan with contrast: HISTORY: Epigastric pain COMPARISON: MRI, 11/06/2018 FINDINGS: Minimal pleural and parenchymal changes in the left lung base. Liver: Abnormal cirrhotic appearing liver with dilated intrahepatic ducts, these appear minimally mor e dilated than on the prior MRI. Portal caval shunt tube in place. Stable cyst and benign hemangioma. Gallbladder:Very markedly distended dilated tortuous gallbladder without overt gallstones or perichol ecystic fluid. Dilated intrahepatic ducts and common hepatic duct region with poorly defined narrowed appearing dist al common duct with some adjacent enhancement possibly cholangitis small mass, consider follow-up ERCP in this regard. Pancreas:Unremarkable Spleen:Splenomegaly. Adrenal glands:Unremarkable. Kidneys:No renal calculus. Minimally dilatedrenal upper collecting systemsand renal pelvis.No evidenc e for obstructing calculus. No solid or cystic mass. There is a large peristomal herniation involving the right anterior lateral abdominal wall containing a large amount of small bowel with some minimal proximal small bowel dilatation, probably mild or low-grade partial small bowel obstruction. No CT evidence for acute appendicitis. The urinary bladder is unremarkable. Minimal ascitic fluid adjacent to the right lobe of the liver. IMPRESSION: Abnormal appearing liver evidence for cirrhosis with slightly worsening intrahepatic ductal dilatatio n as well as severe dilatation and distention of the gallbladder without gallbladder wall thickening or pericholecystic fluid. Area of minimal enhancement at the level of the distal common bile duct possibly some focal cholangit is or small associated enhancing mass, depending upon concern, consider follow-up ERCP. Large peristomal hernia containing small bowel loops with some minimal proximal small bowel dilatatio n possibly mild low-grade partial small bowel obstruction. Slight dilatation of the renal upper collecting systems without evidence for acute obstruction. Ot her findings as above.
--- NOTE | 2019-01-05 10:57 | ULT ---
US Gallbladder RUQ History: [Right upper quadrant pain] Comparison: CT abdomen pelvis same day Findings: Real-time grayscale and color evaluation of the right upper quadrant of the abdomen was per formed. There is cirrhotic contour of the liver. Severe intrahepatic and extra hepatic biliary dilatation. Th e gallbladder is distended without pericholecystic inflammation. Gallbladder wall thickness is normal. Main portal vein is patent. Common bile duct measures 7 mm. Right kidney measures 12.2 x 5.2 x 5 cm without mass. Mild prominence of the right renal pelvis. Impression: 1. Intrahepatic and extrahepatic biliary dilatation. ERCP recommended. 2. Nodular contour of the liver suggesting cirrhosis. 3. Distended gallbladder without evidence of acute cholecystitis. 4. Mild dilatation of the right renal pelvis.
[2019-01-05] MEDS ORDERED: Acetaminophen 325 MG TAB PO PRN (13:05)
[2019-01-05 15:08] VITALS: BMI 28.0
--- NOTE | 2019-01-05 16:01 | HP ---
CHIEF COMPLAINT: Abdominal pain. HISTORY OF PRESENT ILLNESS: This patient is a 63-year-old female with a history of ulcerative colitis status post colectomy and colostomy. The patient also has nonalcoholic cirrhosis and has advanced disease and is followed in [place] by Dr. Delmar Walker at [facility] in [place]. The patient reports that she is actually on the transplant list and has had fairly good contact with them recently. She is followed locally by Dr. Wall. The patient had onset of some epigastric abdominal pain yesterday in the morning. She had some associated indigestion type symptoms. She also reports at that time she had cessation of output from her stoma, which is usually fairly consistent. Last night, however, she started having output again and her pain did start to improve. She presented to the emergency department this morning for further evaluation. REVIEW OF SYSTEMS: This patient reports that she did have a large bowel movement initially that was discolored and somewhat foul smelling from her stoma. She has had no specific fevers or chills. No nausea or vomiting. All other systems reviewed. All pertinent positives and negatives noted in the history of present illness. PAST MEDICAL HISTORY: Notable for; 1. Ulcerative colitis. 2. Iron-deficiency anemia. 3. Cirrhosis. PAST SURGICAL HISTORY: 1. Partial colectomy. 2. x3. 3. Hysterectomy. 4. TIPS procedure. FAMILY HISTORY: Alzheimer's, hypertension, and hyperlipidemia. SOCIAL HISTORY: She is . Nonsmoker, nondrinker, and nondrug user. Full code. Her is her surrogate decision maker. ALLERGIES: NONE. MEDICATIONS: 1. Ursodiol 500 mg one p.o. t.i.d. 2. Xifaxan 550 mg one p.o. b.i.d. 3. Vitamin A 10,000 units b.i.d. 4. Nadolol 20 mg daily. 5. Pantoprazole 40 mg daily. PHYSICAL EXAMINATION: VITAL SIGNS: BP 121/68, pulse 60, respirations 16, O2 saturation 99% on room air, and temperature was 98.7. GENERAL APPEARANCE: Age-appropriate female, in no distress. She is awake, alert, oriented, pleasant, and cooperative. HEENT: PERRL. She does have icteric sclerae. She has no OP lesion. She has some icterus under the tongue. NECK: Supple and symmetric with no lymphadenopathy, JVD, or bruits. HEART: Regular rate and rhythm with no murmurs, gallops, or rubs. LUNGS: Clear to auscultation bilaterally with good chest wall expansion and air exchange. ABDOMEN: Soft, nontender, and nondistended. She does have a fairly broad parastomal hernia. The stoma itself appears to be healthy. She has normoactive bowel sounds. EXTREMITIES: No cyanosis, clubbing, or edema. NEUROLOGIC: She appears to be fully intact with no deficits. PSYCHIATRIC: The patient has normal affect and behavior. LABORATORY DATA: White count 7.2, hemoglobin 14.3, and platelets 160. Sodium 137, potassium 3.6, chloride 102, CO2 of 26, BUN 7, creatinine 0.69, and glucose 82. Lactic acid 1. AST is 89, ALT is 49, bilirubin is 11.3, alkaline phosphatase 232, and albumin 3.3. Urinalysis shows large bilirubin. CT of the abdomen and pelvis shows abnormal-appearing liver with evidence of cirrhosis, slightly worsening intrahepatic ductal dilatation with severe dilatation and distention of the gallbladder without gallbladder wall thickening or pericolic fluid. There is enhancement at the level of the distal common bile duct, possibly focal cholangitis or small associated enhancing mass. An ERCP is recommended depending on level of concern. There is also the large peristomal hernia containing a small bowel loop with some minimal proximal small-bowel dilatation, possibly mild low-grade small-bowel obstruction. Slight dilatation of the renal upper collecting system without evidence for acute obstruction. Ultrasound reveals some intrahepatic and extrahepatic biliary dilatation, nodular contour of the liver, distended gallbladder without evidence of acute cholecystitis, and mild dilatation of the right renal pelvis. IMPRESSION AND PLAN: 1. Abdominal pain, likely related to small-bowel obstruction due to peristomal hernia, appears to be low level. The patient symptomatically has improved. Her stoma output has improved and her pain has largely resolved. We will keep her on some clear liquids. Her exam does not reveal any distention or tenderness. 2. Elevated bilirubin. In light of the patient's findings on the scan, certainly concerning for stricture or obstruction. Given the complicated nature of her situation, I discussed the case with Dr. Wall, her primary cell cleaner. He recommends keeping the patient overnight on the IV antibiotics and hydration and ensure the patient does not have fever or elevation of her white count. I also have subsequently now spoken with Dr. Medina, who is the on-call partner for Dr. Walker. He agrees with that plan. He indicated that if her numbers progressed and got worse that we would need to consider some type of intervention, at which time I will call him back. However, if her numbers continued to look good and she does well, we would probably just send her home with oral antibiotics and have them call their office on Monday. In the interim, we will continue the medications for her cirrhosis. Job ID: [id number]
[2019-01-05] MEDS: Rifaximin 550 MG TAB PO SCH (20:16)
[2019-01-05] MEDS: Vitamin A 10,000 UNITS CAP PO SCH (20:16)
[2019-01-05] MEDS ORDERED: Ursodiol 300 MG CAP PO SCH ×2 (21:00)
[2019-01-06 05:57] LABS: ALT (SGPT) 44 U/L (8-55); AST (SGOT) 84 U/L (5-34); Albumin 2.5 g/dL (3.4-4.8); Alkaline Phosphatase 194 U/L (40-150); Bilirubin, Direct 7.9 mg/dL (0.1-0.3); Bilirubin, Total 10.9 mg/dL (0.2-1.2); Protein, Total 5.5 g/dL (6.0-8.3)
[2019-01-06 06:00] LABS: ALT (SGPT) 43 U/L (8-55); AST (SGOT) 83 U/L (5-34); Albumin 2.5 g/dL (3.4-4.8); Alkaline Phosphatase 192 U/L (40-150); Anion Gap 11 mmol/L (10-20); BUN (Urea Nitrogen) 9 mg/dL (9.8-20.1); Bilirubin, Total 10.6 mg/dL (0.2-1.2); Calc. Creatinine Clearance 102 mL/min (70-130); Calcium 8.2 mg/dL (7.8-10.44); Carbon Dioxide 24 mmol/L (23-31); Chloride 104 mmol/L (98-107); Estimated GFR-MDRD 88; Globulin 2.9 g/dL (2.4-3.5); Glucose 80 mg/dL (80-115); Potassium 3.7 mmol/L (3.5-5.1); Protein, Total 5.4 g/dL (6.0-8.3); Sodium 135 mmol/L (136-145)
[2019-01-06 06:51] LABS: #Eosinphils 0.1 thou/uL (0.0-0.7); #Lymphocytes 0.9 thou/uL (1.20-3.40); #Monocytes 0.6 thou/uL (0.11-0.59); #Neutrophils 3.5 thou/uL (1.40-6.50); %Basophils 0.6 % (0.0-1.0); %Eosinophils 1.7 % (0.0-10.0); %Lymphocytes 17.6 % (21.0-51.0); %Monocytes 12.4 % (0.0-10.0); %Neutrophils 67.8 % (42.0-75.0); Hemoglobin 12.2 g/dL (12.0-16.0); Mean Corpuscular HGB CONC 33.5 g/dL (32.0-36.0); Mean Corpuscular Volume 89.5 fL (78.0-98.0); Mean Platelet Volume 8.9 fL (7.4-10.4); Platelet Count 102 thou/uL (130-400); Platelet Morphology Comment Appears Decreased; RBC Distribution Width 14.8 % (11.5-14.5); Red Blood Cell (RBC) Count 4.06 mill/uL (4.20-5.40); White Blood Cell (WBC) Count 5.2 thou/uL (4.8-10.8)
[2019-01-06 07:33] VITALS: BP 101/62; TEMP 97.9
[2019-01-06] MEDS ORDERED: Diabetic Tussin 200 MG/10 ML UDCUP PO PRN (07:45)
[2019-01-06] MEDS ORDERED: Calcium Carbonate 500 MG ChewTAB PO PRN (07:45)
[2019-01-06] MEDS ORDERED: Cepastat Lozenges 1 LOZ PO PRN (07:45)
[2019-01-06] MEDS ORDERED: Artificial Tears 18 DROP/0.9 ML EA EYE PRN (07:45)
[2019-01-06] MEDS ORDERED: Loratadine 10 MG TAB PO PRN (07:45)
[2019-01-06] MEDS ORDERED: hydrALAZINE 20 MG/ML VIAL SLOW IVP PRN (07:45)
[2019-01-06] MEDS ORDERED: Sodium Chloride 0.65% Nasal 44 ML BOT EA NARE PRN (07:45)
[2019-01-06] MEDS ORDERED: Senokot S 8.6-50 MG TAB PO PRN (07:45)
[2019-01-06] MEDS ORDERED: Zolpidem Tartrate 5 MG TAB PO PRN (07:45)
[2019-01-06] MEDS ORDERED: Ondansetron PF 4 MG/2 ML Vial IVP PRN (07:45)
[2019-01-06] MEDS ORDERED: Ondansetron ODT 4 MG TAB PO PRN (07:45)
[2019-01-06] MEDS ORDERED: Multivitamin W/ Minerals 1 TAB PO SCH (09:00)
[2019-01-06] MEDS ORDERED: Nadolol 40 MG TAB PO SCH (09:00)
[2019-01-06] MEDS: Rifaximin 550 MG TAB PO SCH (09:07)
[2019-01-06] MEDS: Vitamin A 10,000 UNITS CAP PO SCH (09:08)
--- NOTE | 2019-01-07 10:11 | CON ---
DATE OF CONSULTATION: 01/05/2019 REASON FOR CONSULTATION: 1. Abdominal pain. 2. Abnormal LFTs and dilation of the bile duct on CAT scan and abdominal sonogram. HISTORY OF PRESENT ILLNESS: Ms. Sheldon Mcclelland is a very pleasant 63-year-old female, appears very comfortable. She has a very complicated medical history. The patient has had longstanding ulcerative colitis and has had a total colectomy because of dysplasia seen on biopsy in 2016. The patient also had non-alcohol liver cirrhosis, primary sclerosing cholangitis. She has had . The patient has had TIPS procedure done in [place]. She does see Dr. Delmar Walker who is the primary career development director. She has an appointment to see Dr. Walker on the of this month for possible future liver transplant consideration. The patient apparently had TIPS placement in November of 2018 in [place]. The patient had abdominal pain on Monday and the pain resolved afterwards. The pain is predominantly over the epigastric area. The pain returned back yesterday and the pain was persistent. She had no nausea, but induced vomiting with some relief from the pain. Also, she had an ileostomy a week ago, transiently nonfunctioning but now started functioning again. In fact, she has emptied the bag today just before I walked into the room. At the present time, she appears very comfortable. She came to the ER with abdominal pain and had abdominal CAT scan and sonogram. Both of them show dilation of the intrahepatic ducts and common bile duct. The patient had MRI done in October of 2018 and at that time no dilation of the duct seen. The patient tells me when I mentioned to her about the ERCP, she had an ERCP done by Dr. Wall about 11 years ago because of dilation of the bile duct and abdominal abscess. Apparently, this was not successful and she was sent to [place] to have a repeat ERCP. She apparently had biliary endoscopies and underwent ERCP with dilation of the common bile duct. She has done well over the last probably of 10-11 years without any problem. She has had abdominal sonogram, MRI and CAT scan in the recent past and all of them did not show any dilation of the bile duct. She had no fever, no chills. At the present time, her abdominal pain is resolved completely. She feels better. The ileostomy is functioning normal. On the CAT scan, there is some mention of possible SBO, but this essentially resolved as abdomen was not really distended. She also has a ventral hernia. She complained of indigestion over the last several days. She has no dysphagia or odynophagia. She has no other related symptoms. ALLERGIES: NONE. SOCIAL HISTORY: The patient is . She does not smoke or drink alcohol. MEDICAL ILLNESSES: 1. Ulcerative colitis, longstanding. 2. Total colectomy with ileostomy in 2017 and possible placement. 3. Nonalcoholic liver cirrhosis. 4. Primary sclerosing cholangitis. 5. portal hypertension, status post TIPS placement in [place]. 6. x3. 7. Hysterectomy. 8. EGD and also ERCP in the past. 9. History of biliary stricture, failed ERCP here and she went to [place] to have ERCP and bile duct dilation. FAMILY HISTORY: Alzheimer disease, hypertension, hyperlipidemia. SOCIAL HISTORY: The patient is . Does not smoke or drink alcohol. MEDICATIONS: Includes: 1. Ursodiol 500 mg p.o. three times a day. 2. Xifaxan 550 mg one p.o. twice a day. 3. Vitamin A 10,000 units twice a day. 4. Nadolol 20 once a day. 5. Pantoprazole 40 once a day. REVIEW OF SYSTEMS: 10 point system review: CHIEF WHARFINGER: No headache. No dizziness. No syncope. No seizure. RESPIRATORY: No chronic cough, hemoptysis, dyspnea. CARDIOVASCULAR: No chest pain, no palpitation. No dyspnea, orthopnea, or PND. GI: No rectal bleeding or melena. No fever or chills. Has abdominal pain since Monday. : No dysuria, hematuria or frequent urination. MUSCULOSKELETAL: Not relevant. NEUROENDOCRINE, NEUROPSYCHIATRY: Not relevant. HEENT: No relevant. PHYSICAL EXAMINATION: GENERAL: She appears very comfortable. She is very pleasant woman in no distress. VITAL SIGNS: She is afebrile. Pulse is 60, blood pressure 120/70. EYES: She is icteric. HEENT: Within normal limits. NECK: Supple. No adenitis or thyromegaly noted. CARDIOVASCULAR: First and second heart sounds heard. LUNGS: Clear to auscultation. ABDOMEN: Soft and nontender at present time. Nondistended. She has a midline ileostomy and hernia. There is no evidence of bowel obstruction on physical exam. EXTREMITIES: No edema. LABORATORY DATA: CBC; WBC 7200, hemoglobin 14.3. Initially, no bandemia. The lytes are normal. BUN is 7, AST is 89, ALT 49, bilirubin 11.3. She has had a bilirubin of 1.3 before. Alkaline phosphatase 232, albumin 3.3. IMAGING DATA: Abdominal CAT scan does show abdominal hernia and also dilation of CBD and intrahepatic ducts. Abdominal sonogram shows dilation of the bile duct. CLINICAL IMPRESSION: 1. Abdominal pain, which has since resolved. I believe she has recurrent biliary stricture to account for the abdominal pain and abnormally dilated bile duct. She had an ERCP with balloon dilation 11 years ago in [place]. She has no evidence of cholangitis. She has no fever. She is not septic. Her white count is normal. Anyway, there is no harm in adding p.o. antibiotics. 2. History of primary sclerosing cholangitis. 3. Possibly common bile duct stricture, status post endoscopic retrograde cholangiopancreatography with dilation, which was done 11 years ago. 4. Ulcerative colitis status post colectomy and ileostomy. 5. Nonalcoholic liver cirrhosis. 6. Portal hypertension status post transjugular intrahepatic portosystemic shunt placement. RECOMMENDATION: As she is asymptomatic at the present time and her abdomen is very benign, I will start her on a low-sodium diet. I am going to repeat LFTs tomorrow. I will try to call Dr. Cantrell who is a biliary endoscopist in [place] to see whether he can see her for repeat ERCP. She has had failed ERCP in the past, I really do not feel comfortable doing her ERCP here. I think she is not septic and she is clinically stable. This can be arranged as an outpatient procedure. Job ID: [id number]
--- NOTE | 2019-01-07 12:48 | PRG ---
DATE OF SERVICE: 01/06/2019 SUBJECTIVE: Ms. Sheldon Mcclelland is a very pleasant 63-year-old female with liver cirrhosis, primary sclerosing cholangitis, and had a colectomy for dysplasia from ulcerative colitis. abdominal pain, nausea. Her liver function tests are elevated. Yesterday, bilirubin was 11.3. Her transaminases are mildly elevated. She has no fever, no chills. No symptoms of cholangitis. She had an abdominal CAT scan and sonogram shows dilation of the CBD and intrahepatic ducts. The patient had similar episodes in the past, maybe over 10-11 years ago, and has had an ERCP and dilation of bile ducts. The patient is doing very well today. She is tolerating diet. No abdominal pain. No nausea. No vomiting. No fever. No chills. Her liver function tests remain unchanged, except for slight drop in bilirubin to 10.6 from 11.3. The transaminases remain unchanged. PHYSICAL EXAMINATION: VITAL SIGNS: Afebrile. Her vital signs are stable. HEENT: She is icteric. CARDIOVASCULAR: Within normal limits. LUNGS: Within normal limits. ABDOMEN: Soft. No organomegaly. No tenderness. The ileostomy bag is full of stool, and this seems to be functioning. CLINICAL IMPRESSION: 1. Primary sclerosing cholangitis. 2. Possible history of dilation in 2015. 3. Ulcerative colitis, status post right total colectomy. 4. Liver cirrhosis, pending transfer plan and evaluation by Dr. Walker in [place]. RECOMMENDATION: She can be discharged when actually she is asymptomatic. We will make a referral to Dr. Cantrell in [place] for ERCP in the near future. Job ID: [id number]
--- NOTE | 2019-01-07 16:06 | DIS ---
DATE OF ADMISSION: 01/05/2019 DATE OF DISCHARGE: 01/06/2019 DISCHARGE DIAGNOSES: 1. Abdominal pain. 2. Possible mild small bowel obstruction. 3. Parastomal hernia. 4. Dilated common bile duct with intrahepatic and extrahepatic ductal dilatation. 5. Nonalcoholic cirrhosis. 6. History of ulcerative colitis. 7. History of partial colectomy with colostomy. HISTORY OF PRESENT ILLNESS: This patient is a 63-year-old female with a history of ulcerative colitis, status post partial colectomy with colostomy and a chronic parastomal hernia. She also has history of nonalcoholic cirrhosis and is followed by Dr. Walker at [facility] in [place]. They are pursuing transplant workup. The patient presented to the emergency department with some abdominal pain. The day prior to presentation, she reported sensation of output from her stoma along with some epigastric abdominal pain and indigestion type symptoms. By that evening, the output picked up again and her pain was improved, but she came to the emergency department for evaluation. CT scan of the abdomen revealed some partial small bowel obstruction proximal to loops of small bowel within the parastomal hernia concerning for low-grade bowel obstruction. With regard to that, the patient's symptoms had fully resolved. She had no abdominal pain and was hungry. She was placed in observation, was allowed to advance her diet. She ate well. She had no abdominal pain. No nausea. No distention. Her followup exam was notable for no tenderness. The patient also had findings of intrahepatic and extrahepatic ductal dilatation with some decreased diameter of the distal common bile duct concerning for possible mass versus stricture and the patient's labs revealed a bilirubin level of 11.3. With that, the patient's primary GI doctor here locally, Dr. Wall, was contacted as well as Dr. Olson, who was covering for Dr. Walker at [facility]. In conversation with both of them, the plan was to keep the patient overnight. Monitor for any fever and keep her on antibiotics. Should those numbers stay the same or improve, she could be discharged with p.o. antibiotics to have outpatient followup. She was also seen in consultation by Dr. Baird, who is on-call for GI. PHYSICAL EXAMINATION: VITAL SIGNS: On the day of discharge, the patient's temperature is 97.9, T-max was 98.9, pulse 67, respirations 16, O2 saturation 95% on room air, and blood pressure is 101/62. GENERAL: She is awake, alert, oriented, pleasant, and cooperative. HEART: Regular rate and rhythm. LUNGS: Clear. ABDOMEN: Soft, nontender, and nondistended. Normal bowel sounds. She has good output from the stoma. She has the parastomal hernia, which is nontender, non-tense. LABORATORY DATA: Her repeat labs shows a bilirubin level of 10.9. Her AST is 84, ALT 44, and alkaline phosphatase 194. DISPOSITION: The patient will be discharged to home in stable condition. She will be on her usual home medications and will also add Levaquin 500 mg one p.o. daily. She will be on a low-fat diet and her activity level is as tolerated. She will call Dr. Walker's office tomorrow. She has been given my personal cellphone number in order for them to call me directly, so that we can catch them up on events occurred here and plan follow up there. Dr. Baird also indicated he would be working to get the patient set up with Dr. Olson in [place] in order to consider endoscopic diagnostic intervention of the bile duct obstructive lesion. The patient can return to the hospital should she have any problems prior to that time. Time spent in discharge activities, including face time with the patient, was 42 min. Job ID: [id number] MTDD
== END 2019-01-06 10:21 | disposition home or self-care (01) ==
LOC: ERS 07:55 → T4-A 12:24
PROVIDERS: ADMIT Internal Medicine; ATTEND Internal Medicine
DX: R10.13 Epigastric pain (principal); K43.5 Parastomal hernia without obstruction or gangrene; K74.60 Unspecified cirrhosis of liver; D50.9 Iron deficiency anemia, unspecified; E80.6 Other disorders of bilirubin metabolism; K82.8 Other specified diseases of gallbladder; N28.89 Other specified disorders of kidney and ureter; K83.01 Primary sclerosing cholangitis; K76.6 Portal hypertension; Z79.899 Other long term (current) drug therapy; Z90.49 Acquired absence of other specified parts of digestive tract; Z93.3 Colostomy status; Z98.890 Other specified postprocedural states
CPT/HCPCS: 36415; 74177; 76705; 80053; 81003; 83605; 83690; 85025; 93005; G0378; J1956; Q9966

== ENCOUNTER 2019-05-02 10:55 | Outpatient (CLI) | payer BC ==
[2019-05-02] MEDS ORDERED: Sodium Chloride 0.9% 15 ML NEB ONE (15:00)
== END 2019-05-02 10:56 | disposition home or self-care (01) ==
LOC: WCC 10:55
PROVIDERS: ATTEND Family Medicine
DX: K94.11 Enterostomy hemorrhage (principal)
CPT/HCPCS: 99211; A4218; G0463

== ENCOUNTER 2019-05-07 08:35 | Outpatient (CLI) | payer BC ==
[2019-05-07] MEDS ORDERED: Gadobenate Dimeglumine 529 MG/1 ML (20ML VIAL) ONE (10:09)
--- NOTE | 2019-05-07 12:30 | MRI ---
MRI ABDOMEN WITH AND WITHOUT IV CONTRAST AND MRCP: HISTORY: Biliary stricture or obstruction. Primary sclerosing cholangitis. COMPARISON: 05/07/2019 FINDINGS: Changes of cirrhosis of the liver are again seen. Residual fibrotic changes in hemangiomas and cysts in the liver are again noted. The spleen demonstrates further interval enlargement, measuring 18 cm. There is a moderate amount of ascites. An occluded TIPS shunt is again seen. No enhancing liver mas s is identified. The gallbladder is markedly distended and tortuous without evidence of cholelithiasis. There is intra hepatic biliary ductal dilatation. A tiny cyst in the tail of the pancreas is again seen with minimal increase in size from 4 mm on the previous study to 6 mm on the current exam. The adrenal glands and kidneys are normal. Bone marrow signal is normal. No significant lymphadenopathy is noted. IMPRESSION: Interval worsening of portal hypertension since 11/06/2018. No definite evidence of hepatocellular ca rcinoma. POS: OFF
== END 2019-05-07 08:36 | disposition home or self-care (01) ==
LOC: BICMRI 08:35
PROVIDERS: ATTEND Internal Medicine Gastroenterology
DX: R93.3 Abnormal findings on diagnostic imaging of other parts of digestive tract (principal); K83.1 Obstruction of bile duct; K83.01 Primary sclerosing cholangitis; K76.6 Portal hypertension
CPT/HCPCS: 74183; 82565; A9577

== ENCOUNTER 2019-07-11 10:32 | Outpatient (CLI) | payer BC ==
--- NOTE | 2019-07-11 12:32 | MMO ---
Bilateral MAMMO Bilat Screen [facility]DI+AGNES. CLINICAL HISTORY: Patient is 63 years old and is seen for screening. The patient has no family history of breast cancer. The patient has no personal history of cancer. VIEWS: The views performed were: bilateral craniocaudal with tomosynthesis; bilateral mediolateral oblique with tomosynthesis; and bilateral exaggerated craniocaudal. FILMS COMPARED: The present examination has been compared to prior imaging studies performed at [facility] on 06/26/2018, and at [facility] on 07/18/2014, 09/04/2015 and 06/05/2017. This study has been interpreted with the assistance of computer-aided detection. MAMMOGRAM FINDINGS: The breasts are heterogeneously dense, which could obscure a lesion on mammography. There are no suspicious masses, suspicious calcifications, or new areas of architectural distortion. IMPRESSION: THERE IS NO MAMMOGRAPHIC EVIDENCE OF MALIGNANCY. A ROUTINE FOLLOW-UP MAMMOGRAM IN 1 YEAR IS RECOMMENDED. THE RESULTS OF THIS EXAM WERE SENT TO THE PATIENT. ACR BI-RADS Category 1 - Negative MAMMOGRAPHY NOTE: 1. A negative mammogram report should not delay a biopsy if a dominant of clinically suspicious mass is present. 2. Approximately 10% to 15% of breast cancers are not detected by mammography. 3. Adenosis and dense breasts may obscure an underlying neoplasm. Reported by: NIXON JEAN BAPTISTE MD Electonically Signed: [id number]
== END 2019-07-11 10:33 | disposition home or self-care (01) ==
LOC: BICMAMMO 10:32
PROVIDERS: ATTEND Family Medicine
DX: Z12.31 Encounter for screening mammogram for malignant neoplasm of breast (principal)
CPT/HCPCS: 77063; 77067

== ENCOUNTER 2019-10-14 17:59 | Emergency (ER) | payer MEDICARE, BC ==
[2019-10-14 18:32] LABS: #Basophils 0.1 thou/uL (0.0-0.2); #Lymphocytes 0.4 thou/uL (1.20-3.40); #Monocytes 0.3 thou/uL (0.11-0.59); #Neutrophils 7.4 thou/uL (1.40-6.50); %Basophils 0.7 % (0.0-1.0); %Eosinophils 0.2 % (0.0-10.0); %Lymphocytes 4.8 % (21.0-51.0); %Monocytes 3.7 % (0.0-10.0); %Neutrophils 90.7 % (42.0-75.0); Hemoglobin 14.1 g/dL (12.0-16.0); Mean Corpuscular Hemoglobin 30.5 pg (27.0-31.0); Mean Corpuscular Volume 89.5 fL (78.0-98.0); Mean Platelet Volume 8.9 fL (7.4-10.4); Platelet Count 132 thou/uL (130-400); RBC Distribution Width 14.2 % (11.5-14.5); Red Blood Cell (RBC) Count 4.64 mill/uL (4.20-5.40); White Blood Cell (WBC) Count 8.2 thou/uL (4.8-10.8)
[2019-10-14 18:54] LABS: ALT (SGPT) 25 U/L (8-55); AST (SGOT) 52 U/L (5-34); Albumin 3.1 g/dL (3.4-4.8); Alkaline Phosphatase 341 U/L (40-110); Anion Gap 13 mmol/L (10-20); BUN (Urea Nitrogen) 9 mg/dL (9.8-20.1); Bilirubin, Total 8.8 mg/dL (0.2-1.2); Calc. Creatinine Clearance 0 mL/min (70-130); Calcium 9.2 mg/dL (7.8-10.44); Carbon Dioxide 23 mmol/L (23-31); Chloride 101 mmol/L (98-107); Estimated GFR-MDRD 75; Globulin 4.6 g/dL (2.4-3.5); Glucose 148 mg/dL (80-115); Lipase 244 U/L (8-78); Potassium 3.9 mmol/L (3.5-5.1); Protein, Total 7.7 g/dL (6.0-8.3); Sodium 133 mmol/L (136-145)
[2019-10-14] MEDS ORDERED: Ondansetron PF 4 MG/2 ML Vial ONE (19:26)
[2019-10-14] MEDS ORDERED: Morphine 4 MG/ML VIAL ONE (19:26)
== END 2019-10-14 23:26 | disposition short-term general hospital (02) ==
LOC: ERS 17:59
DX: K85.90 Acute pancreatitis without necrosis or infection, unspecified (principal); R17 Unspecified jaundice; Z79.899 Other long term (current) drug therapy
CPT/HCPCS: 36415; 80053; 83690; 85025; 93005; 96361; 96374; 96375; J2270; J2405

== ENCOUNTER 2020-04-30 11:16 | Inpatient (IN) | payer MEDICARE, BC ==
[2020-04-30] MEDS ORDERED: Ondansetron PF 4 MG/2 ML Vial ONE (11:52)
[2020-04-30] MEDS ORDERED: Morphine 4 MG/ML VIAL ONE (11:52)
[2020-04-30 12:14] LABS: Bilirubin 3+ (Negative); Blood, Urine Negative (Negative); Clarity Turbid (Clear); Glucose, Urine (Dipstick) Normal (Negative); Ketone, Urine Negative (Negative); Leukocyte Negative Leu/uL (Negative); Nitrite Negative (Negative); Protein, Urine (Dipstick) 10 mg/dL (Neg-Trace); Specific Gravity, Urine 1.019 (1.002-1.036); Urobilinogen Normal mg/dL (Less than 2)
[2020-04-30 12:29] LABS: #Lymphocytes 0.7 thou/uL (1.20-3.40); #Monocytes 0.3 thou/uL (0.11-0.59); %Basophils 0.5 % (0.0-1.0); %Eosinophils 0.8 % (0.0-10.0); %Lymphocytes 12.9 % (21.0-51.0); %Monocytes 6.6 % (0.0-10.0); %Neutrophils 79.2 % (42.0-75.0); Hemoglobin 13.6 g/dL (12.0-16.0); Mean Corpuscular HGB CONC 31.7 g/dL (32.0-36.0); Mean Corpuscular Hemoglobin 29.4 pg (27.0-31.0); Mean Corpuscular Volume 92.8 fL (78.0-98.0); Mean Platelet Volume 9.5 fL (7.4-10.4); Platelet Count 132 thou/uL (130-400); RBC Distribution Width 15.8 % (11.5-14.5); Red Blood Cell (RBC) Count 4.62 mill/uL (4.20-5.40)
[2020-04-30] MEDS ORDERED: Iopamidol-370 76% 500 ML 1 ML ONE (12:51)
[2020-04-30 12:53] LABS: ALT (SGPT) 24 U/L (8-55); AST (SGOT) 58 U/L (5-34); Albumin 2.8 g/dL (3.4-4.8); Alkaline Phosphatase 394 U/L (40-110); Anion Gap 15 mmol/L (10-20); BUN (Urea Nitrogen) 13 mg/dL (9.8-20.1); Bilirubin, Total 11.3 mg/dL (0.2-1.2); Calc. Creatinine Clearance 0 mL/min (70-130); Calcium 8.3 mg/dL (7.8-10.44); Carbon Dioxide 22 mmol/L (23-31); Chloride 102 mmol/L (98-107); Estimated GFR-MDRD 69; Globulin 3.9 g/dL (2.4-3.5); Glucose 80 mg/dL (80-115); Lipase 59 U/L (8-78); Potassium 3.8 mmol/L (3.5-5.1); Protein, Total 6.7 g/dL (6.0-8.3); Sodium 135 mmol/L (136-145)
[2020-04-30] MEDS ORDERED: Piperacillin/Tazobactam 4.5 GM VIAL ONE (15:52)
--- NOTE | 2020-04-30 16:03 | CT ---
CT ABDOMEN AND PELVIS WITH IV CONTRAST: Date: 04/30/2020 INDICATION: Right flank pain. Comparison made to CT abdomen and pelvis of 01/05/2019. FINDINGS: Lung bases clear. Liver again shows irregular contours and mild heterogeneity suggesting changes of cirrhosis, which wa s described previously. There is a low density lesion in the superior liver measuring approximately 1 .5 cm, which is stable and may represent a small cyst. Intrahepatic ductal dilatation is again noted. There is an intrahepatic stent indicating prior TIPS p rocedure. The gallbladder is mildly distended, but similar appearance to the prior exam. Spleen is mi ldly enlarged, but stable. Pancreas unremarkable. Adrenal glands unremarkable. Kidneys show mild fullness of the left collecting structures, but this i s stable from the prior exam. Ureters are normal caliber. Urinary bladder unremarkable. The parastomal hernia involving the right anterior abdominal wall is again noted with multiple small bowel loops herniated into this subcutaneous hernia. There are dilated proximal small bowel loops inv olving proximal jejunum which indicates a low to moderate grade obstruction from this anterior abdomi nal wall parastomal hernia. Ileostomy with post right colectomy changes noted. Residual left colon is unremarkable. Nonspecific p eriaortic lymph nodes. Increased venous structures in the splenic hilum consistent with portal hypert ension. Review of osseous structures show a new superior end plate compression involving the L3 vertebra when compared to the prior study of 01/05/2019. Mild loss of central and anterior height at this vertebra now noted. Incidentally noted is a small anterior abdominal wall hernia to the left of the umbilicus, which was present previously, but is slightly larger today. Mesenteric fat herniates through this defect with s mall hernia sac in the subcutaneous tissues measured at approximately 3.0 cm width. IMPRESSION: 1. Mildly dilated proximal small bowel loops leading to the parastomal hernia of the anterior right abdominal wall consistent with small bowel obstruction secondary to this hernia. Numerous small bowel loops herniate through this defect into the subcutaneous tissues. 2. Liver findings again suggest cirrhosis with intrahepatic ductal dilatation and dilated and disten ded gallbladder. These findings appear stable. 3. Mild prominence of the left upper renal collecting structures which is stable. 4. New superior end plate compression of the L3 vertebra when compared to prior exam. POS: AGW
[2020-04-30] MEDS ORDERED: Ondansetron ODT 4 MG TAB SL PRN (16:05)
[2020-04-30] MEDS ORDERED: Ondansetron PF 4 MG/2 ML Vial IVP PRN ×2 (16:05→17:28)
--- NOTE | 2020-04-30 16:26 | PDOC.FPRHP ---
- History of Present Illness Chief Complaint: Right abdominal pain History of Present Illness: Patient is a 64 year old female with a history of ulcerative collitis with colostomy, cholangitis, nonalcoholic cirrhosis and esophageal varices who presents to the ED with complaints of intermittent right sided abdominal pain that radiates to the right flank. The patient says the pain began 2 weeks ago and worsened at 8am today. She describes the pain as "just pain" and rates it a max 10/10, current 5/10. She took Hydrocodone 7.5 last pm with relief of pain. She reports decreased PO intake and dark colored urine but denies dysuria. She says colostomy output has not changed but notes increased flatulence. She also complains of chronic lower back pain for the past 1 month but denies numbness, tingling, and urine incontinence. The patient reports she is followed by physicians in [place] for her liver disease. She reports she is currently on the liver transplant list. Hx of TIPPs procedure. ED Course: In the ED, patient noted to have elevated bilirubin at 22.3. Dr. Wall, GI, was consulted. Decision was made to admit the patient overnight rather than transfer to [place]. Patient was given Zosyn. - Allergies/Adverse Reactions Allergies Allergy/AdvReac Type Severity Reaction Status Date / Time No Known Allergies Allergy Verified 10/20/19 08:38 - Home Medications Medication Instructions Recorded Confirmed Type Ursodiol 500 mg PO TID 12/05/14 01/05/19 History Rifaximin [Xifaxan] 550 mg PO BID 12/09/17 01/05/19 History Vitamin A 10,000 unit PO BID 12/09/17 01/05/19 History Nadolol 20 mg PO DAILY 02/25/18 01/05/19 History Pantoprazole [Protonix] 40 mg PO DAILY 02/25/18 01/05/19 History Multivit-Minerals/Folic Acid 200 mcg PO DAILY 01/05/19 01/05/19 History [One-A-Day Vitacraves Gummies] Levofloxacin [Levaquin] 500 mg PO DAILY #6 tab 01/06/19 Rx - History PMHx: Ulcerative collitis, iron deficiency anemia, nonalcoholic cirrhosis, esophageal varices, cholangitis PSHx: 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 Denies hx of tobacco use, ETOH use and drug use. - Review of Systems General: reports: fever/chills (Reports chills). denies: night sweats Eyes: denies: eye pain, vision changes ENT: denies: nasal congestion Respiratory: denies: cough, shortness of breath Cardiovascular: denies: chest pain, edema Gastrointestinal: reports: abdominal pain (right sided). denies: nausea, vomiting Genitourinary: denies: incontinence, dysuria, polyuria Skin: reports: jaundice. denies: rashes Musculoskeletal: reports: pain (chronic back pain), tenderness (lower back) Neurological: denies: numbness, weakness Psychological: denies: anxiety, depression - Vital signs BP: [101/59] HR: [69] RR: [18] Tmax: [97.9] Pox: [100]% on [RA] Wt: [59kg] - Physical Exam Constitutional: NAD, awake, alert and oriented HEENT: normocephalic and atraumatic -HEENT: Scleral icterus Neck: FROM, trachea midline Chest: no-tender to palpation Heart: RRR, normal S1/S2 Lungs: CTAB, no respiratory distress Abdomen: soft, non-tender, bowel sounds present, no masses/distention Musculoskeletal: normal structure, ROM grossly normal -Musculoskeletal: R lower back tenderness on palpation Neurological: no focal deficit, normal sensation Skin: no rash/lesions -Skin: Jaundice Heme/Lymphatic: no unusual bruising or bleeding Psychiatric: normal mood and affect FMR H&P: Results - Labs Result Diagrams: 04/30/20 11:58 04/30/20 11:58 Lab results: WBC 5.0 thou/uL (4.8-10.8) 04/30/20 11:58 Hgb 13.6 g/dL (12.0-16.0) 04/30/20 11:58 Hct 42.9 % (36.0-47.0) 04/30/20 11:58 MCV 92.8 fL (78.0-98.0) 04/30/20 11:58 Plt Count 132 thou/uL (130-400) 04/30/20 11:58 Neutrophils % 79.2 % (42.0-75.0) H 04/30/20 11:58 Sodium 135 mmol/L (136-145) L 04/30/20 11:58 Potassium 3.8 mmol/L (3.5-5.1) 04/30/20 11:58 Chloride 102 mmol/L (98-107) 04/30/20 11:58 Carbon Dioxide 22 mmol/L (23-31) L 04/30/20 11:58 BUN 13 mg/dL (9.8-20.1) 04/30/20 11:58 Creatinine 0.84 mg/dL (0.6-1.1) 04/30/20 11:58 Glucose 80 mg/dL (80-115) 04/30/20 11:58 Calcium 8.3 mg/dL (7.8-10.44) 04/30/20 11:58 Total Bilirubin 11.3 mg/dL (0.2-1.2) H 04/30/20 11:58 AST 58 U/L (5-34) H 04/30/20 11:58 ALT 24 U/L (8-55) 04/30/20 11:58 Alkaline Phosphatase 394 U/L (40-110) H 04/30/20 11:58 Serum Total Protein 6.7 g/dL (6.0-8.3) 04/30/20 11:58 Albumin 2.8 g/dL (3.4-4.8) L 04/30/20 11:58 Lipase 59 U/L (8-78) 04/30/20 11:58 Urine Ketones Negative mg/dL (Negative) 04/30/20 11:39 Urine Blood Negative (Negative) 04/30/20 11:39 Urine Nitrite Negative (Negative) 04/30/20 11:39 Ur Leukocyte Esterase Negative Bunny/uL (Negative) 04/30/20 11:39 FMR H&P: A/P - Plan Hyperbilirubinemia Hx cholangitis Nonalcoholic cirrhosis Followed by physicians in [place] and [facility]. Concern for worsening biliary disease, bili 11.3 in ED. AST 58, ALT 24, Alk phos 394. CT showed cirrhosis with intrahepatic ductal dilation and dilated distended gallbladder -Admit to medical -F/u Dr. Wall, GI, recs -Ammonia, coag level -Am CBC, CMP -Start Levaquin 500mg Q24hr per Dr. Wall SBO on CT Patient denies change in ostomy output. -Consider general surgery consult L3 compression fracture on CT CT showed superior end plate compression of L3 vertebra, new vs. old CT. PMPA -Continue current pain regimen Esophageal varices -Hgb stable -Monitor Iron Deficiency Anemia -Hgb stable -Monitor with am labs Ulcerative colitis s/p partial colectomy with colostomy -Colostomy bag in place with output noted PCP: Dr. Nichole at [facility] Code: FULL DVT ppx: SCDs, home Xifaxan Dispo: Admit to tele, expected LOS 48-72 hours FMR H&P: Upper Level - Plan Date/Time: 04/30/20 [id number] IJuan, DO, have evaluated this patient and agree with findings/plan as outlined by development intern resident. Pertinent changes/additions are listed here. This is a 64 yo female with a pmh of PSC with cirrhosis, subtotal colectomy for high grade dysplasia in the setting of ulcerative colitis, esophageal varices who presents to the ER with a cc of right flank pain that has been ongoing for the last 2 weeks. SHe has a right lower colostomy. She reports the pain is intermittent and is better with walking. She does state the pain is worse with laying flat and raising her right leg. She has a history of a TIPS procedure that was done in [place]. She is quite concerned about her care in [place] and wishes proper communication be made between our staff and their group. Dr. Wall was consulted from the ER and plans to monitor the pt while she is here. Objective: Vitals: BP 101/59, HR 69, RR 22, Temp 97.9, SpO2 100% on RA, Wt 60kg General: NAD HEENT: MMM, AT/NC Cardio: RRR, no murmurs Lungs: Good air movement, mild left sided wheezing Abdomen: Ostomy in place, BS +, no tenderness to palpation Extremities: pulses present MSK: pain with palpation of right lower back Skin: Jaundiced A/P Concern for worsening biliary disease in the context of PSC and cirrhosis -Admit to medical -CT shows small bowel obstruction leading to ostomy, cirrhosis with intrahepatic ductal dilation and dilated distended gallbladder -Will obtain ammonia level -Dr. Wall consulted from the ER -Will continue Zosyn from the ER L3 compression fracture on CT -May be contributing to her back pain -Continue current pain meds hydrocodone-Ibuprofen 7.5-200 TID per [facility] aware Hyperbiliruminemia -Will monitor, appears close to baseline Hx of esophageal varices -Hgb stable, will monitor for signs of bleeding Please see development intern note for further information and for chronic condition mamangement Code: Full Prophylaxis: SCDs Family: at bedside Fluids: NS 100ml/hr Diet: NPO Disposition: DC in 2-3 days PCP: [facility], Dr. Nichole
[2020-04-30] MEDS ORDERED: Ondansetron ODT 4 MG TAB PO PRN (17:28)
[2020-04-30] MEDS ORDERED: Acetaminophen 325 MG TAB PO PRN (17:28)
[2020-04-30 17:47] VITALS: BMI 22.3
[2020-04-30] MEDS: Sodium Chloride 0.9% 1,000 ML IV SCH ×2 (17:58→19:46)
[2020-04-30 18:06] LABS: INR-International Normal Ratio 1.5; PTT 40.9 sec (22.9-36.1); Prothrombin Time 18.2 sec (12.0-14.7)
[2020-04-30] MEDS ORDERED: tiZANidine HCl 4 MG TAB PO PRN (18:40)
[2020-04-30] MEDS: Ibuprofen 200 MG TAB PO PRN (19:54)
[2020-04-30] MEDS ORDERED: oxyCODONE 5 MG TAB PO PRN (21:00)
[2020-04-30] MEDS ORDERED: URSODIOL 500 MG PO SCH (21:00)
[2020-04-30] MEDS: Vitamin A 10,000 UNITS CAP PO SCH (21:27)
[2020-04-30] MEDS: Rifaximin 550 MG TAB PO SCH (21:27)
[2020-04-30] MEDS: Cholestyramine/Aspartame 4 gm Packet PO SCH (22:16)
[2020-05-01] MEDS: Sodium Chloride 0.9% 1,000 ML IV SCH ×3 (00:58→14:19)
[2020-05-01 05:20] LABS: #Eosinphils 0.1 thou/uL (0.0-0.7); #Lymphocytes 0.8 thou/uL (1.20-3.40); #Monocytes 0.4 thou/uL (0.11-0.59); #Neutrophils 1.9 thou/uL (1.40-6.50); %Basophils 0.5 % (0.0-1.0); %Eosinophils 3.5 % (0.0-10.0); %Lymphocytes 25.3 % (21.0-51.0); %Monocytes 11.5 % (0.0-10.0); %Neutrophils 59.2 % (42.0-75.0); Hemoglobin 11.1 g/dL (12.0-16.0); Mean Corpuscular HGB CONC 32.4 g/dL (32.0-36.0); Mean Corpuscular Hemoglobin 29.8 pg (27.0-31.0); Mean Corpuscular Volume 92.1 fL (78.0-98.0); Mean Platelet Volume 9.7 fL (7.4-10.4); Platelet Count 122 thou/uL (130-400); RBC Distribution Width 15.7 % (11.5-14.5); Red Blood Cell (RBC) Count 3.71 mill/uL (4.20-5.40); White Blood Cell (WBC) Count 3.1 thou/uL (4.8-10.8)
[2020-05-01 05:43] LABS: ALT (SGPT) 20 U/L (8-55); AST (SGOT) 47 U/L (5-34); Albumin 2.1 g/dL (3.4-4.8); Alkaline Phosphatase 309 U/L (40-110); Anion Gap 11 mmol/L (10-20); BUN (Urea Nitrogen) 10 mg/dL (9.8-20.1); Bilirubin, Total 8.3 mg/dL (0.2-1.2); Calc. Creatinine Clearance 79 mL/min (70-130); Calcium 7.8 mg/dL (7.8-10.44); Carbon Dioxide 22 mmol/L (23-31); Chloride 107 mmol/L (98-107); Estimated GFR-MDRD 86; Globulin 3.2 g/dL (2.4-3.5); Glucose 71 mg/dL (80-115); Potassium 3.9 mmol/L (3.5-5.1); Protein, Total 5.3 g/dL (6.0-8.3); Sodium 136 mmol/L (136-145)
--- NOTE | 2020-05-01 06:25 | PDOC.FM ---
- Subjective Subjective: Patient reports her right sided abdominal pain and back pain has resolved. She reports palpating a knot on the right side of her back that has improved overnight. She denies headache, vision changes, chest pain, SOB, nausea, and vomiting. - Objective MAR Reviewed: Yes Vital Signs & Weight: Vital Signs (12 hours) Temp Pulse Resp BP Pulse Ox 05/01/20 04:43 96.4 F L 55 L 18 86/50 L 97 05/01/20 00:50 97.4 F L 53 L 18 75/50 L 98 04/30/20 20:05 97.9 F 75 16 95/56 L 98 Weight Weight 59 kg Result Diagrams: 05/01/20 04:45 05/01/20 04:45 Phys Exam - Physical Examination Constitutional: NAD HEENT: moist MMs Scleral icterus Neck: supple, full ROM Respiratory: no wheezing, clear to auscultation bilateral Cardiovascular: RRR, no significant murmur Gastrointestinal: soft, non-tender, no distention, positive bowel sounds ostomy bag in place Musculoskeletal: no edema, pulses present No back tenderness on palpation. No pressure point. 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 Hx multiple ERCPs for biliary obstruction, most recent 03/19. Concern for worsening biliary disease. Bili 13.6->11.1. AST 58->47, ALT 24->20, Alk phos 394->309. CT showed cirrhosis with intrahepatic ductal dilation and dilated distended gallbladder. -Dr. Wall consulted. If + bcx, will consider transfer to [place]. -Bili, LFTs improving -Continue Levaquin 500mg Q24hr per Dr. Wall SBO noted on on CT Patient denies change in ostomy output. -Dr. Wall aware, believes imaging findings is due to hx of abdominal strictures rather than true SBO L3 compression fracture on CT CT showed superior end plate compression of L3 vertebra, new vs. old CT. PMPA -Continue current pain regimen Esophageal varices -Hgb 13.6->11.1 -Monitor for bleeding Iron Deficiency Anemia -Hgb 13.6 in ED -Monitor with am labs Ulcerative colitis s/p partial colectomy with colostomy -Colostomy bag in place with output noted Hx muscle spasms -Hold tizanidine due to low BP PCP: Dr. Nichole at [facility] Code: FULL DVT ppx: SCDs, home Xifaxan Dispo: Home vs. transfer pending further medical management
--- NOTE | 2020-05-01 07:23 | CON ---
DATE OF CONSULTATION: 04/30/2020 REASON FOR CONSULT: Abdominal pain and abnormal LFTs. HISTORY OF PRESENT ILLNESS: Ms. Mcclelland is a pleasant 64-year-old female, well known to me from previous evaluation and treatment. She has a long history of ulcerative colitis, developed dysplasia. Unfortunately, she also developed cirrhosis secondary to primary sclerosing cholangitis. She underwent a colectomy with ileostomy and after that had issues with peristomal variceal hemorrhage requiring a TIPS procedure in her liver, this all occurred after 2017. More recently, issues have been with her PSC. She has been on surveillance program in [place] with ERCP and MRI with Dr. Walker and Dr. Bryce Nicholas for cholangiocarcinoma. Most recently, she had intervention with dilatation of the biliary tree for a dominant stricture in February of 2020. She presented with pain. She has been having some pain in her back, both sides for past several months, sometimes in the left radiating down to the leg. Dr. Nichole felt that this was likely there is some sciatica and probably compression fractures in her lower back. More recently, she was having worsening pain on the right and then she has been using a heating pad. Today, however, she had the pain radiating around to her right side. She is concerned about possible UTI. That may have been yesterday, but she went and had a urinalysis with her PCP, which was negative. With persistent problems and the way it radiated around to her front, she is worried that maybe it was related to her ileostomy and the hernia there or her liver, so she presented to the emergency room. She has had no nausea or vomiting. She had no diarrhea. She and her do note that her urine is somewhat darker than usual today. She has had no fever or chills. She denies any fall or trauma. She denies any hematuria, dysuria, frequency, or urgency. REVIEW OF SYSTEMS: Negative for rashes, myalgias, arthralgias, mild pruritus of the skin. Negative shortness of breath, chest pain, dyspnea on exertion, or cough. Heart, negative for chest pain, orthostasis, or orthopnea. She denies any melena or bright red blood per ostomy. This seems to be functioning well and she is passing gas and bowel. Neurologic, no history of confusion or encephalopathy. PAST MEDICAL HISTORY: 1. Inflammatory bowel disease, status post colectomy in 2017 with ileostomy. 2. Previous variceal hemorrhage from stomal varices, status post TIPS in 2019. 3. Primary sclerosing cholangitis. PAST SURGICAL HISTORY: Colectomy, section, total hysterectomy, TIPS, multiple ERCPs with biliary dilatation last in February 2020. SOCIAL HISTORY: Does not smoke, drink, or use drugs. Her is at the bedside. ALLERGIES: NONE KNOWN. MEDICATIONS: At home Ursodiol 500 t.i.d., Xifaxan 550 b.i.d., vitamin A, Questran 4 g three times a day, Fosamax, vitamin D3, Zanaflex, hydrocodone p.r.n. Medications here, she received some Zofran in the emergency room, normal saline, Tylenol. PHYSICAL EXAMINATION: VITAL SIGNS: Temperature is 97.9, blood pressure 95/56, pulse 75. GENERAL: She is alert and oriented to person, place, and time. is at bedside. She is in no distress. HEENT: Oropharynx without lesions. NECK: Supple without adenopathy. There are no supraclavicular nodes. LUNGS: Clear. HEART: Regular rate and rhythm without clicks, rubs, or murmurs. BACK: She is tender in the sacroiliac areas bilaterally. She does not have any overt CVA tenderness. She seems to be tender along the ribs and the lower side and the back, coming around to the front. I do not see any rash such as shingles. ABDOMEN: Her ostomy does have a hernia, but this is reducible and is nontender in the area. The ostomy site looks good and pink. There is no palpable hepatosplenomegaly. No shifting dullness or fluid wave. EXTREMITIES: No clubbing, cyanosis, or edema. LABORATORY STUDIES: Here, white count is 5, hemoglobin is 13, platelet count is 132. INR is 1.5. Sodium 135, potassium 3.8, BUN and creatinine are 13 and 0.8. Bilirubin is 11.3, it was 8.8 on 10/14/2019. AST is 58; ALT is 24; alkaline phosphatase 394, 341 back in September, it was 84 in 12/2018; albumin is 2.8; protein is 6.7. Ammonia is 22. Lipase is 59. Urine turbid, orange, 3+ bilirubin, no white blood cells. Blood cultures drawn in the ER reportedly. ASSESSMENT: 1. Status post colectomy with ileostomy for ulcerative colitis, high-grade dysplasia in 2017. 2. Cirrhosis secondary to primary sclerosing cholangitis secondary to her ulcerative colitis. 3. Multiple ERCPs for biliary obstruction, intraductal dilatation noted on recent CT this admission. It is not clear if this is a lot worse. She notes that her urine has been darker than usual. She did have an ERCP with dilatation of abdominal stricture and biopsies, which showed no evidence of malignancy back in February 2020 done in [place]. 4. Pain in the right flank radiating to side. No overt signs of hematuria or kidney stones. This is likely related to biliary tree, she may have some low-grade cholangitis that could be related to some compression fractures in her back or shingles that just has not manifested with a rash yet. She does have mildly low blood pressures that probably goes with her cirrhosis just as much as anything else. RECOMMENDATIONS: Get a blood culture, agree with silvestre cultures. We will go ahead and start her empirically on some antibiotic to cover the biliary tree; Levaquin or Zosyn would be fine. We will place her on normal saline at 100 an hour. We will follow along with you. If she ultimately shows signs of positive blood culture, she will be transferred to [place] to have repeat ERCP and dilatation of the biliary tree. Job ID: [id number]
[2020-05-01] MEDS: Loratadine 10 MG TAB PO SCH (09:58)
[2020-05-01] MEDS: Vitamin A 10,000 UNITS CAP PO SCH ×2 (09:58→20:45)
[2020-05-01] MEDS: Rifaximin 550 MG TAB PO SCH ×2 (09:58→20:45)
[2020-05-01] MEDS: Cholecalciferol 1,000 UNITS (25 MCG) TAB PO SCH (09:58)
[2020-05-01] MEDS: Cholestyramine/Aspartame 4 gm Packet PO SCH ×2 (10:11→22:54)
[2020-05-01] MEDS: Lidocaine 5% Patch TD SCH (11:45)
--- NOTE | 2020-05-01 12:20 | PRG ---
DATE OF SERVICE: 05/01/2020 Ms. Mcclelland is a 64-year-old lady who was admitted with abdominal pain and history of cirrhosis secondary to primary sclerosing cholangitis and also history of ulcerative colitis. She has been seen in consultation by Dr. Wall. He recommended getting the blood cultures, which have been obtained and started on empiric antibiotic coverage until cultures are returned. Should her blood cultures be positive, she will be transferred to [place] for repeat ERCP and dilatation of the biliary tree. Job ID: [id number]
[2020-05-01] MEDS ORDERED: traMADol HCl 50 MG TAB PO PRN (12:59)
--- NOTE | 2020-05-01 13:35 | PRG ---
DATE OF SERVICE: 05/01/2020 SUBJECTIVE: Ms. Mcclelland is actually feeling better. She has some type of topical tape on her back to help with her pain. She has had no nausea or vomiting. Right upper quadrant pain, her pain has really become more focally identified to her back. Her bowels are moving well and ostomy site is working well. OBJECTIVE: VITAL SIGNS: Pulse 80, temperature 98, blood pressure is 115/69 earlier when she got a muscle relaxant. LUNGS: Clear. HEART: Regular without clicks or murmurs. ABDOMEN: Nontender. Ostomy site is fine. She has some tenderness in the lower back. She has a pain patch there. LABORATORY DATA: White count 3.1, hemoglobin 11, platelet count 122. INR 1.5. Bilirubin is down from 11 to 8.3. AST 47; ALT 20; alkaline phosphatase is 309, down from 394. ASSESSMENT: 1. Compression fracture in the back, likely the main reason for pain. 2. Ostomy, working fine. 3. Radiologists worry about partial small bowel obstruction around the ventral hernia at the ostomy site. There is no obstruction here. 4. Primary sclerosing cholangitis with liver function tests about where they were. There is no overt cholangitis. We are treating her empirically. Blood cultures so far negative. RECOMMENDATIONS: Use Ultram to control pain. She needs to see her PCP with regard to her osteoporosis as an outpatient. She has follow up with her boilermaker central steam plant in [place] at the end of the month for repeat imaging. Once her pain is controlled here, I think she can go home. give her Levaquin for 5 days. Job ID: [id number]
[2020-05-01] MEDS: Ibuprofen 200 MG TAB PO PRN (20:49)
[2020-05-01] MEDS ORDERED: Lidocaine Patch Removal 1 EACH TOP SCH (23:00)
[2020-05-02] MEDS: Sodium Chloride 0.9% 1,000 ML IV SCH ×2 (01:30→11:28)
[2020-05-02 05:46] LABS: #Eosinphils 0.1 thou/uL (0.0-0.7); #Lymphocytes 0.7 thou/uL (1.20-3.40); #Monocytes 0.2 thou/uL (0.11-0.59); #Neutrophils 2.3 thou/uL (1.40-6.50); %Basophils 0.6 % (0.0-1.0); %Eosinophils 1.8 % (0.0-10.0); %Lymphocytes 20.8 % (21.0-51.0); %Monocytes 7.2 % (0.0-10.0); %Neutrophils 69.7 % (42.0-75.0); Hemoglobin 12.7 g/dL (12.0-16.0); Mean Corpuscular HGB CONC 32.6 g/dL (32.0-36.0); Mean Corpuscular Hemoglobin 29.8 pg (27.0-31.0); Mean Corpuscular Volume 91.4 fL (78.0-98.0); Mean Platelet Volume 9.8 fL (7.4-10.4); Platelet Count 134 thou/uL (130-400); RBC Distribution Width 15.8 % (11.5-14.5); Red Blood Cell (RBC) Count 4.26 mill/uL (4.20-5.40); White Blood Cell (WBC) Count 3.3 thou/uL (4.8-10.8)
--- NOTE | 2020-05-02 05:59 | PDOC.FM ---
- Subjective Subjective: Patient reports mild back pain overnight that resolved with Ibuprofen. She denies headache, vision changes, chest pain, SOB, nausea, abdominal pain and edema. - Objective MAR Reviewed: Yes Vital Signs & Weight: Vital Signs (12 hours) Temp Pulse Resp BP Pulse Ox 05/02/20 03:42 98.2 F 64 18 117/72 97 05/01/20 23:50 97.8 F 63 18 115/72 97 05/01/20 20:57 97 05/01/20 20:22 98.4 F 66 16 112/58 L 97 Weight Weight 59 kg I&O: 04/30/20 05/01/20 05/02/20 06:59 06:59 06:59 Intake Total 2148 Output Total 350 Balance 1798 Result Diagrams: 05/02/20 05:20 05/02/20 05:20 Phys Exam - Physical Examination Constitutional: NAD HEENT: moist MMs, sclera anicteric Neck: supple, full ROM Respiratory: no wheezing, clear to auscultation bilateral Cardiovascular: RRR, no significant murmur Gastrointestinal: soft, positive bowel sounds Ostomy bag in place Musculoskeletal: no edema, pulses present Neurological: non-focal, moves all 4 limbs Psychiatric: normal affect, A&O x 3 Skin: no rash Dx/Plan - Plan Plan: Hyperbilirubinemia, improved in setting of cirrhosis 2/2 primary sclerosing cholangitis 2/2 UC Followed by physicians in [place] and [facility]. Hx multiple ERCPs for biliary obstruction, most recent 03/19. Bili 13.6->11.1->8.3->9. CT showed cirrhosis with intrahepatic ductal dilation and dilated distended gallbladder. -Dr. Wall consulted. Recommended dc home if pain is well controlled. -Continue Levaquin 500mg Q24hr. Will discharge home with Levaquin x 5 days -Will f/u with animal nutrition teacher in [place] at end of this month SBO noted on on CT Patient denies change in ostomy output. -Dr. Wall aware, states imaging findings are due to hx of abdominal strictures rather than true SBO L3 compression fracture on CT CT showed superior end plate compression of L3 vertebra, new vs. old CT. PMPA -Required Tramadol x 1 overnight -Continue lidocaine patch for pain Esophageal varices -Hgb stable -Monitor for bleeding Iron Deficiency Anemia -Hgb 13.6 in ED -Monitor with am labs Ulcerative colitis s/p partial colectomy with colostomy -Colostomy bag in place with output noted Hx muscle spasms -Aware PCP: Dr. Nichole at [facility] Code: FULL DVT ppx: SCDs, home Xifaxan Dispo: Home today pending adequate pain control Addendum - Attending - Attending Attestation Date/Time: 05/02/20 [id number] I personally evaluated the patient and discussed the management with Dr. Flynn. I agree with the History, Examination, Assessment and Plan documented above with any addition or exceptions noted below. Patient feels well. If pain is controlled on PO meds, she should be stable for discharge this afternoon with outpatient GI follow up.
[2020-05-02 06:06] LABS: ALT (SGPT) 22 U/L (8-55); AST (SGOT) 60 U/L (5-34); Albumin 2.5 g/dL (3.4-4.8); Alkaline Phosphatase 389 U/L (40-110); Anion Gap 12 mmol/L (10-20); BUN (Urea Nitrogen) 8 mg/dL (9.8-20.1); Calc. Creatinine Clearance 79 mL/min (70-130); Calcium 8.2 mg/dL (7.8-10.44); Carbon Dioxide 23 mmol/L (23-31); Chloride 106 mmol/L (98-107); Estimated GFR-MDRD 86; Globulin 3.8 g/dL (2.4-3.5); Glucose 94 mg/dL (80-115); Potassium 3.4 mmol/L (3.5-5.1); Protein, Total 6.3 g/dL (6.0-8.3); Sodium 138 mmol/L (136-145)
[2020-05-02] MEDS: Ibuprofen 200 MG TAB PO PRN ×2 (06:45→13:38)
[2020-05-02] MEDS: Cholecalciferol 1,000 UNITS (25 MCG) TAB PO SCH (08:41)
[2020-05-02] MEDS: Cholestyramine/Aspartame 4 gm Packet PO SCH (08:42)
[2020-05-02] MEDS: Lidocaine 5% Patch TD SCH (08:42)
[2020-05-02] MEDS: Vitamin A 10,000 UNITS CAP PO SCH (08:42)
[2020-05-02] MEDS: Rifaximin 550 MG TAB PO SCH (08:42)
[2020-05-02] MEDS: Loratadine 10 MG TAB PO SCH (08:42)
[2020-05-02] MEDS: Pantoprazole 40 MG VIAL IVP SCH ×2 (08:42→08:59)
[2020-05-02] MEDS ORDERED: Potassium Chloride 20 MEQ TAB PO SCH (09:30)
[2020-05-02 12:57] VITALS: BP 116/67; TEMP 98.2
--- NOTE | 2020-05-02 14:57 | PRG ---
DATE OF SERVICE: 05/02/2020 SUBJECTIVE: Ms. Mcclelland's pain is much better. She is up walking around. She states she is going to go home. She states she was told by the residents to go ahead and use her Vicoprofen at home for pain. She asked why she cannot have a muscle relaxant. I explained that is because it makes her too hypotensive, which is the same thing that happened with beta-blockers. Additionally, she has had issues with hepatic encephalopathy in the past. She has otherwise done well. OBJECTIVE: VITAL SIGNS: Temperature is 98, pulse 65, blood pressure 116/67. ABDOMEN: Soft, nontender. She is icteric. LABORATORY DATA: White count 3.3, hemoglobin 12.7, platelet count 134, differential normal. INR 1.5 on admission. Sodium 138, potassium 3.4, BUN and creatinine were 8 and 0.69. Bilirubin is stable at 9. AST and ALT are 16 and 22. Alkaline phosphatase 389. ASSESSMENT: 1. Admission for back pain and right upper quadrant pain. She thought this was maybe her hernia, but she has no signs of obstruction there, no tenderness. In retrospect, the pain was from a new compression fracture at L3 as noted on her CT scan from 04/30/20. 2. Primary sclerosing cholangitis with some dominant strictures. She was empirically treated with Levaquin for possible cholangitis although her liver enzymes remain the same. Her imaging was about the same as in the past and microbiology showed negative blood cultures and urine at 48 hours. 3. Status post colon colectomy for ulcerative colitis with high-grade dysplasia with right ileostomy and abdominal wall hernia with no signs of incarceration. 4. Prior history of encephalopathy, which was not an issue here. RECOMMENDATIONS: Today she can go home and resume home medications of Zyrtec, vitamin D, alendronate, hydrocodone. I recommended she stop the hydrocodone and use Ultram 100 q.8 if needed, Ursodiol 500 t.i.d., Xifaxan 550 b.i.d., vitamin A. She can stop the levofloxacin and she can use Questran for pruritus. Follow up my office in 2 to 3 weeks. Follow up with her biliary endoscopist and Dr. Walker, her scientific recruiter in [place] as directed. Job ID: [id number]
== END 2020-05-02 15:00 | disposition home or self-care (01) | DRG 445 ==
LOC: ERS 11:16 → SURG A 16:13
PROVIDERS: ADMIT Family Medicine; ATTEND Family Medicine
DX: K83.01 Primary sclerosing cholangitis (principal); K51.90 Ulcerative colitis, unspecified, without complications; I85.10 Secondary esophageal varices without bleeding; M48.56XA Collapsed vertebra, not elsewhere classified, lumbar region, initial encounter for fracture; D50.9 Iron deficiency anemia, unspecified; K74.60 Unspecified cirrhosis of liver; M62.838 Other muscle spasm; K43.9 Ventral hernia without obstruction or gangrene; Z79.899 Other long term (current) drug therapy; Z93.3 Colostomy status; Z90.49 Acquired absence of other specified parts of digestive tract
CPT/HCPCS: 36415; 74177; 80053; 81003; 82140; 83605; 83690; 85025; 85610; 85730; 87040; 87086; 96365; 96375; C9113; J1956; J2270; J2405; J2543

== ENCOUNTER 2020-05-17 10:49 | Emergency (ER) | payer MEDICARE, BC ==
[2020-05-17] MEDS ORDERED: Morphine 4 MG/ML VIAL ONE (11:05)
[2020-05-17] MEDS ORDERED: Ondansetron PF 4 MG/2 ML Vial ONE (11:05)
--- NOTE | 2020-05-17 14:14 | CT ---
CT LUMBAR SPINE: Date: 05-17-2020 PROVIDED CLINICAL HISTORY: Back pain. FINDINGS: Comparison is made with the examination dated 04-30-2020. Five non-rib bearing lumbar type vertebral bodies are demonstrated. Schmorl's node formation involvin g the superior endplate of T12 and remote, mild superior endplate compression deformity involving L3 are redemonstrated. Interval acute mild superior endplate compression deformity of L2. The lumbar nicolas tebral body heights appear otherwise maintained. There is right convexity curvature of the lumbar spi ne. Sagittal lumbar alignment appears normal. There is no high grade central canal or foraminal narro wing apparent by CT. The visualized extraspinal soft tissues demonstrate a stable Ct appearance. IMPRESSION: Acute L2 superior endplate compression fracture. POS: ROLAN
== END 2020-05-17 13:24 | disposition home or self-care (01) ==
LOC: ERS 10:49
DX: M48.56XA Collapsed vertebra, not elsewhere classified, lumbar region, initial encounter for fracture (principal); D50.9 Iron deficiency anemia, unspecified; Z79.899 Other long term (current) drug therapy
CPT/HCPCS: 72131; 96374; 96375; J2270; J2405

== ENCOUNTER 2020-05-31 11:18 | Emergency (ER) | payer MEDICARE, BC ==
[2020-05-31 14:13] LABS: #Lymphocytes 0.5 thou/uL (1.20-3.40); #Monocytes 0.2 thou/uL (0.11-0.59); #Neutrophils 5.3 thou/uL (1.40-6.50); %Basophils 0.2 % (0.0-1.0); %Eosinophils 0.6 % (0.0-10.0); %Lymphocytes 8.5 % (21.0-51.0); %Monocytes 3.6 % (0.0-10.0); %Neutrophils 87.1 % (42.0-75.0); Hemoglobin 12.5 g/dL (12.0-16.0); Mean Corpuscular HGB CONC 33.5 g/dL (32.0-36.0); Mean Corpuscular Hemoglobin 30.6 pg (27.0-31.0); Mean Corpuscular Volume 91.3 fL (78.0-98.0); Mean Platelet Volume 9.5 fL (7.4-10.4); Platelet Count 130 thou/uL (130-400); RBC Distribution Width 16.4 % (11.5-14.5)
[2020-05-31 14:19] LABS: INR-International Normal Ratio 1.5; PTT 43.9 sec (22.9-36.1); Prothrombin Time 18.4 sec (12.0-14.7)
[2020-05-31 14:33] LABS: ALT (SGPT) 22 U/L (8-55); AST (SGOT) 52 U/L (5-34); Albumin 2.5 g/dL (3.4-4.8); Alkaline Phosphatase 300 U/L (40-110); Anion Gap 13 mmol/L (10-20); BUN (Urea Nitrogen) 9 mg/dL (9.8-20.1); Bilirubin, Total 14.8 mg/dL (0.2-1.2); Calc. Creatinine Clearance 0 mL/min (70-130); Calcium 8.2 mg/dL (7.8-10.44); Carbon Dioxide 24 mmol/L (23-31); Chloride 104 mmol/L (98-107); Estimated GFR-MDRD 89; Globulin 3.8 g/dL (2.4-3.5); Glucose 83 mg/dL (80-115); Protein, Total 6.3 g/dL (6.0-8.3); Sodium 137 mmol/L (136-145)
[2020-05-31] MEDS ORDERED: Morphine 4 MG/ML VIAL ONE (15:22)
== END 2020-05-31 15:31 | disposition short-term general hospital (02) ==
LOC: ERS 11:18
DX: M54.5 Low back pain (principal); K74.60 Unspecified cirrhosis of liver; Z71.6 Tobacco abuse counseling; Z79.899 Other long term (current) drug therapy
CPT/HCPCS: 36415; 80053; 85025; 85610; 85730; 96374; J2270

== ENCOUNTER 2021-01-29 06:53 | Emergency (ER) | payer BC, MEDICARE ==
[2021-01-29] MEDS ORDERED: Morphine 4 MG/ML VIAL ONE (07:40)
[2021-01-29] MEDS ORDERED: Ondansetron PF 4 MG/2 ML Vial ONE (07:40)
[2021-01-29 08:36] LABS: #Lymphocytes 0.6 thou/uL (1.20-3.40); #Monocytes 0.5 thou/uL (0.11-0.59); #Neutrophils 6.2 thou/uL (1.40-6.50); %Basophils 0.6 % (0.0-1.0); %Eosinophils 0.1 % (0.0-10.0); %Lymphocytes 7.9 % (21.0-51.0); %Monocytes 6.2 % (0.0-10.0); %Neutrophils 85.1 % (42.0-75.0); Hemoglobin 13.9 g/dL (12.0-16.0); Mean Corpuscular HGB CONC 32.7 g/dL (32.0-36.0); Mean Corpuscular Hemoglobin 30.8 pg (27.0-31.0); Mean Corpuscular Volume 94.2 fL (78.0-98.0); Mean Platelet Volume 9.9 fL (7.4-10.4); Platelet Count 98 thou/uL (130-400); RBC Distribution Width 13.9 % (11.5-14.5); Red Blood Cell (RBC) Count 4.51 mill/uL (4.20-5.40); White Blood Cell (WBC) Count 7.3 thou/uL (4.8-10.8)
[2021-01-29 08:54] LABS: BUN (Urea Nitrogen) 13 mg/dL (9.8-20.1)
[2021-01-29 08:55] LABS: ALT (SGPT) 24 U/L (8-55)
[2021-01-29] MEDS ORDERED: HYDROmorphone 0.5 MG/0.5 ML SYRINGE ONE ×2 (09:03→13:22)
[2021-01-29 09:04] LABS: Albumin 3.1 g/dL (3.4-4.8)
[2021-01-29 09:05] LABS: Chloride 105 mmol/L (98-107); Potassium 4.3 mmol/L (3.5-5.1)
[2021-01-29 09:06] LABS: Calcium 8.7 mg/dL (7.8-10.44); Sodium 136 mmol/L (136-145)
[2021-01-29 09:07] LABS: Globulin 3.7 g/dL (2.4-3.5); Glucose 124 mg/dL (80-115); Protein, Total 6.8 g/dL (5.8-8.1)
[2021-01-29 09:08] LABS: Anion Gap 18 mmol/L (10-20); Carbon Dioxide 17 mmol/L (23-31)
[2021-01-29 09:09] LABS: Bilirubin, Total 7.6 mg/dL (0.2-1.2)
[2021-01-29 09:10] LABS: Alkaline Phosphatase 268 U/L (40-110); Calc. Creatinine Clearance 0 mL/min (70-130)
[2021-01-29 09:12] LABS: AST (SGOT) 57 U/L (5-34)
[2021-01-29 09:13] LABS: Lipase 35 U/L (8-78)
[2021-01-29] MEDS ORDERED: Piperacillin/Tazobactam 4.5 GM in Sodium Chloride 0.9% 100 ML IVPB SCH (10:30)
== END 2021-01-29 15:37 | disposition short-term general hospital (02) ==
LOC: ERS 06:53
DX: K80.50 Calculus of bile duct without cholangitis or cholecystitis without obstruction (principal); D50.9 Iron deficiency anemia, unspecified; K74.60 Unspecified cirrhosis of liver; Z79.899 Other long term (current) drug therapy
CPT/HCPCS: 36415; 76705; 80053; 83690; 84484; 85025; 87040; 93005; 96374; 96375; 96376; J1170; J2270; J2405; J2543; J3490

== ENCOUNTER 2022-02-17 08:32 | Outpatient (CLI) | payer MEDICARE | END 2022-02-17 08:33 | disposition home or self-care (01) | LOC: BICMAMMO 08:32 | PROVIDERS: ATTEND Internal Medicine Endocrinology, Diabetes & Metabolism | DX: M81.0 Age-related osteoporosis without current pathological fracture (principal) | CPT/HCPCS: 77080 ==

== ENCOUNTER 2022-06-20 08:53 | Emergency (ER) | payer MEDICARE ==
[2022-06-20] MEDS ORDERED: Iopamidol-370 76% 500 ML 1 ML ONE (09:15)
[2022-06-20] MEDS ORDERED: Morphine 4 MG/ML VIAL ONE (09:33)
[2022-06-20] MEDS ORDERED: Pantoprazole 40 MG VIAL ONE (09:33)
[2022-06-20] MEDS ORDERED: Ondansetron PF 4 MG/2 ML Vial ONE (09:33)
[2022-06-20] MEDS ORDERED: Octreotide Acetate 500 MCG/ML VIAL ONE (09:33)
[2022-06-20 09:55] LABS: #Lymphocytes 1.1 thou/uL (1.20-3.40); #Monocytes 0.7 thou/uL (0.11-0.59); #Neutrophils 8.2 thou/uL (1.40-6.50); %Basophils 0.5 % (0.0-1.0); %Eosinophils 0.2 % (0.0-10.0); %Lymphocytes 10.7 % (21.0-51.0); %Monocytes 7.1 % (0.0-10.0); %Neutrophils 81.5 % (42.0-75.0); Mean Corpuscular HGB CONC 34.3 g/dL (32.0-36.0); Mean Corpuscular Volume 96.3 fl (78.0-98.0); Mean Platelet Volume 8.3 fL (7.4-10.4); Platelet Count 109 10x3/uL (130-400); RBC Distribution Width 14.2 % (11.5-14.5); Red Blood Cell (RBC) Count 4.54 mill/uL (4.20-5.40); White Blood Cell (WBC) Count 10.1 10x3/uL (4.8-10.8)
[2022-06-20 09:58] LABS: ALT (SGPT) 29 U/L (8-55); AST (SGOT) 53 U/L (5-34); Albumin 3.4 g/dL (3.4-4.8); Alkaline Phosphatase 165 U/L (40-110); Anion Gap 14 mmol/L (10-20); BUN (Urea Nitrogen) 9 mg/dL (9.8-20.1); Bilirubin, Total 7.4 mg/dL (0.2-1.2); Calc. Creatinine Clearance 0 mL/min (70-130); Carbon Dioxide 22 mmol/L (23-31); Chloride 106 mmol/L (98-107); Estimated GFR 95; Globulin 3.5 g/dL (2.4-3.5); Glucose 108 mg/dL (80-115); Lipase 63 U/L (8-78); Potassium 3.7 mmol/L (3.5-5.1); Protein, Total 6.9 g/dL (5.8-8.1); Sodium 138 mmol/L (136-145)
[2022-06-20] MEDS ORDERED: Piperacillin/Tazobactam 4.5 GM VIAL ONE (11:41)
== END 2022-06-20 14:19 | disposition short-term general hospital (02) ==
LOC: ERS 08:53
DX: K83.1 Obstruction of bile duct (principal)
CPT/HCPCS: 74177; 80053; 83690; 84484; 85025; 93005; 96374; 96375; C9113; J2270; J2354; J2405; J2543; Q9967

== ENCOUNTER 2023-06-07 10:36 | Outpatient (CLI) | payer MEDICARE | END 2023-06-07 10:37 | disposition home or self-care (01) | LOC: BICMAMMO 10:36 | PROVIDERS: ATTEND Family Medicine | DX: Z12.31 Encounter for screening mammogram for malignant neoplasm of breast (principal) | CPT/HCPCS: 77063; 77067 ==

== ENCOUNTER 2023-08-28 18:02 | Emergency (ER) | payer MEDICARE ==
[2023-08-28 18:53] LABS: #Eosinphils 0.1 thou/uL (0.0-0.7); #Monocytes 0.5 thou/uL (0.11-0.59); %Basophils 0.7 % (0.0-1.0); %Eosinophils 1.2 % (0.0-10.0); %Lymphocytes 18.9 % (21.0-51.0); %Monocytes 7.9 % (0.0-10.0); %Neutrophils 70.9 % (42.0-75.0); Hematocrit 37.1 % (36.0-47.0); Hemoglobin 12.8 g/dL (12.0-16.0); Mean Corpuscular HGB CONC 34.5 g/dL (32.0-36.0); Mean Corpuscular Volume 92.8 fl (78.0-98.0); Mean Platelet Volume 10.4 fL (7.4-10.4); Platelet Count 107 10x3/uL (130-400); RBC Distribution Width 15.3 % (11.5-14.5); White Blood Cell (WBC) Count 5.7 10x3/uL (4.8-10.8)
[2023-08-28 19:13] LABS: ALT (SGPT) 18 U/L (8-55); AST (SGOT) 36 U/L (5-34); Alkaline Phosphatase 197 U/L (40-110); Anion Gap 12 mmol/L (10-20); BUN (Urea Nitrogen) 10 mg/dL (9.8-20.1); Bilirubin, Total 3.2 mg/dL (0.2-1.2); Calc. Creatinine Clearance 0 mL/min (70-130); Calcium 8.8 mg/dL (7.8-10.44); Carbon Dioxide 23 mmol/L (23-31); Chloride 107 mmol/L (98-107); Estimated GFR 96; Globulin 3.2 g/dL (2.4-3.5); Glucose 133 mg/dL (80-115); Lipase 101 U/L (8-78); Potassium 3.9 mmol/L (3.5-5.1); Protein, Total 6.2 g/dL (5.8-8.1); Sodium 138 mmol/L (136-145)
[2023-08-28 20:03] LABS: INR-International Normal Ratio 1.4; Prothrombin Time 16.9 sec (12.0-14.7)
== END 2023-08-28 20:37 | disposition home or self-care (01) ==
LOC: ERS 18:02
DX: K94.09 Other complications of colostomy (principal)
CPT/HCPCS: 36415; 80053; 82274; 83690; 85025; 85610; 99283

== ENCOUNTER 2023-10-04 19:51 | Emergency (ER) | payer MEDICARE ==
[2023-10-04 23:18] LABS: #Eosinphils 0.1 thou/uL (0.0-0.7); #Monocytes 0.8 thou/uL (0.11-0.59); #Neutrophils 4.4 thou/uL (1.40-6.50); %Basophils 0.5 % (0.0-1.0); %Eosinophils 1.1 % (0.0-10.0); %Monocytes 12.2 % (0.0-10.0); Hemoglobin 12.5 g/dL (12.0-16.0); Mean Corpuscular HGB CONC 34.7 g/dL (32.0-36.0); Mean Corpuscular Hemoglobin 31.9 pg (27.0-31.0); Mean Corpuscular Volume 91.8 fl (78.0-98.0); Mean Platelet Volume 10.9 fL (7.4-10.4); Platelet Count 101 10x3/uL (130-400); RBC Distribution Width 15.3 % (11.5-14.5); Red Blood Cell (RBC) Count 3.92 mill/uL (4.20-5.40); White Blood Cell (WBC) Count 6.6 10x3/uL (4.8-10.8)
[2023-10-04 23:36] LABS: ALT (SGPT) 17 U/L (8-55); AST (SGOT) 40 U/L (5-34); Albumin 2.7 g/dL (3.4-4.8); Alkaline Phosphatase 218 U/L (40-110); Anion Gap 13 mmol/L (10-20); BUN (Urea Nitrogen) 7 mg/dL (9.8-20.1); Bilirubin, Total 2.9 mg/dL (0.2-1.2); Calc. Creatinine Clearance 0 mL/min (70-130); Calcium 8.2 mg/dL (7.8-10.44); Carbon Dioxide 22 mmol/L (23-31); Chloride 107 mmol/L (98-107); Estimated GFR 97; Globulin 3.4 g/dL (2.4-3.5); Glucose 90 mg/dL (80-115); Lipase 68 U/L (8-78); Potassium 3.9 mmol/L (3.5-5.1); Protein, Total 6.1 g/dL (5.8-8.1); Sodium 138 mmol/L (136-145)
[2023-10-04 23:37] LABS: Troponin I Less than 0.010 ng/mL (< 0.028)
[2023-10-05 00:19] LABS: Bacteria/HPF None Seen HPF (None Seen); Bilirubin Negative (Negative); Blood, Urine Negative (Negative); CAUTI Indications for Culture Pelvic or flank pain; Clarity Clear (Clear); Glucose, Urine (Dipstick) Normal (Negative); Ketone, Urine Negative (Negative); Leukocyte Negative Leu/uL (Negative); Nitrite Negative (Negative); Protein, Urine (Dipstick) Negative (Neg-Trace); RBC/HPF 0-3 HPF (0-3); Specific Gravity, Urine 1.004 (1.002-1.036); Squamous Epithelial 0-3 HPF (0-3); Urobilinogen Normal mg/dL (Less than 2); WBC/HPF 0-3 HPF (0-3); pH, Urine 6.5 (5.0-9.0)
[2023-10-05 00:20] LABS: Urine Culture Reflex No No
== END 2023-10-05 00:31 | disposition home or self-care (01) ==
LOC: ERS 19:51
DX: R10.9 Unspecified abdominal pain (principal); Z93.3 Colostomy status
CPT/HCPCS: 80053; 81001; 83605; 83690; 84484; 85025; 99284

== ENCOUNTER 2024-06-10 11:15 | Outpatient (CLI) | payer MEDICARE | END 2024-06-10 11:16 | disposition home or self-care (01) | LOC: BICMAMMO 11:15 | PROVIDERS: ATTEND Family Medicine | DX: Z12.31 Encounter for screening mammogram for malignant neoplasm of breast (principal) | CPT/HCPCS: 77063; 77067 ==